=== PATIENT | male | born 1970 | race Caucasian/White ===

== ENCOUNTER 2020-09-11 23:27 | Emergency (ER) | payer MEDICAID, SELFPAY ==
[2020-09-11 23:39] VITALS: BP 132/84; PULSE 87; RESP 18; TEMP 36.7; O2SAT 96; BMI 26.6
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
[2020-09-12] MEDS: HYDROcodone-acetaminophen 5-325 mg Tablet 1 TAB PO (04:38)
[2020-09-12 04:44] VITALS: BP 130/65; PULSE 80; RESP 18; TEMP 36.6; O2SAT 95
== END 2020-09-12 04:45 | disposition home or self-care (01) ==
PROVIDERS: Emergency Provider Emergency Medicine; PCP Internal Medicine
DX: S13.4XXA Sprain of ligaments of cervical spine, initial encounter (principal); I25.10 Atherosclerotic heart disease of native coronary artery without angina pectoris; I25.2 Old myocardial infarction; I50.9 Heart failure, unspecified; J44.9 Chronic obstructive pulmonary disease, unspecified; E78.5 Hyperlipidemia, unspecified; I25.5 Ischemic cardiomyopathy; F17.290 Nicotine dependence, other tobacco product, uncomplicated; Z79.82 Long term (current) use of aspirin; V89.2XXA Person injured in unspecified motor-vehicle accident, traffic, initial encounter; Z95.5 Presence of coronary angioplasty implant and graft; Z95.810 Presence of automatic (implantable) cardiac defibrillator
CPT/HCPCS: 70450; 72125; 99283

== ENCOUNTER → 2021-07-17 08:46 | Outpatient (BNVA) | payer MEDICAID, SELFPAY | PROVIDERS: Visit Provider Internal Medicine | DX: I25.10 Atherosclerotic heart disease of native coronary artery without angina pectoris (principal); I25.2 Old myocardial infarction; E78.5 Hyperlipidemia, unspecified; Z95.810 Presence of automatic (implantable) cardiac defibrillator; I25.5 Ischemic cardiomyopathy; I50.9 Heart failure, unspecified | CPT/HCPCS: 93282; 99213; 99214 ==

== ENCOUNTER → 2022-01-28 12:39 | Outpatient (BNVA) | payer MEDICAID, SELFPAY | PROVIDERS: Visit Provider Internal Medicine | DX: R07.9 Chest pain, unspecified (principal); E78.5 Hyperlipidemia, unspecified; Z95.810 Presence of automatic (implantable) cardiac defibrillator; I25.10 Atherosclerotic heart disease of native coronary artery without angina pectoris; I25.5 Ischemic cardiomyopathy; I50.9 Heart failure, unspecified; F17.290 Nicotine dependence, other tobacco product, uncomplicated; I25.2 Old myocardial infarction | CPT/HCPCS: 93005; 99214 ==

== ENCOUNTER 2022-03-24 07:59 | Outpatient (CLI) | payer MEDICAID, SELFPAY ==
[2022-03-24 08:07] VITALS: BMI 26.6
--- NOTE | 2022-03-24 08:25 | ECG_ITS ---
[facility] Test Date: 2022-03-24 Pat Name: Roshan Arellano Department: Room: Gender: Male Mechanical Facilities Technician: : 1970 Requested By: Pj Hamilton Order Number: [id number] Traci MD: Pj Hamilton M.D. Interpretive Statements NAME OF STUDY: LEXISCAN SESTAMIBI STRESS TEST INDICATION: [Chest Pain, ] Procedure: At the baseline, the blood pressure was 126/82 mmHg with a heart rate of 52 bpm. The electrocardiogram showed sinus bradycardia, left bundle branch block. The Lexiscan was infused over a period of 20 seconds. A total of 0.4 mg of Lexiscan was infused. The stress phase was continued for a total of 5 minutes. Heart rate was at the end of stress phase was 77 bpm and a blood pressure of 126/79 mmHg. The EKG at the peak infusion revealed normal sinus rhythm with no significant ST-T wave changes. Sestamibi was injected 20 seconds after the Lexiscan infusion. Blood pressure at the end of recovery phase was 122/79 mmHg with a heart rate of 75 bpm. Conclusion: 1. Normal EKG response to Lexiscan infusion 2. No Lexiscan induced chest pain or cardiac arrhythmia. 3. Normal blood pressure and heart rate response. 4. Sestamibi/sestamibi perfusion scan pending; see separate report. Electronically Signed On 04-10-2022 23:04:54 WEB PRODUCTION MANAGER by Pj Hamilton M.D. [email or web address]
--- NOTE | 2022-03-24 08:25 | NMCV_ITS ---
NM omayra perf SPECT r/s* [id number] Roshan Arellano Sr Age: 51 Gender: M : 1970 Exam Date: 03/24/2022 09:06 Ordering Phys: Pj Hamilton M.D ([email or web address]) Technologist: SUSI Reagan Exam Location: [facility] [address] Indications: CHEST PAIN STRESS TEST Please [facility] IMAGE PROTOCOL Rest/Stress 1 Lexiscan Day Radiopharmaceutical Dose (mCi) Administration Site Administered by Rest: Tc-99m 10.6 IV SUSI Parnell Sestamibi Stress:Tc-99m 32.6 IV SUSI Parnell Sestamibi Rest: 24-Mar-2022 60 Discovery 630 Stress: 24-Mar-2022 30 Discovery 630 0.4mg Lexiscan. Images obtained in supine and prone position. SPECT RESULTS Technical Quality: Good Raw Data Analysis: Normal Image Corrections: No attenuation or motion correction applied Summed Stress Score: 33 Summed Rest Score: 34 Summed Difference Score: 1 PERFUSION FINDINGS There is a large in size, partially reversible perfusion defect noted in apical, apical anterior, anterior and anterolateral cardoso. This is consistent with large sized prior infarct with significant khushi-infarct ischemia noted in LAD and left circumflex artery territories. FUNCTIONAL RESULTS (calculated via Gated SPECT) Stress Image LV EF (%): 14 Stress EDV (mL):437 TID: 1.22 Stress ESV (mL):378 FUNCTIONAL FINDINGS: LV systolic function is severely reduced. TID ratio of 1.22 is elevated. IMPRESSIONS 1. Abnormal myocardial perfusion imaging with large sized prior infarct noted in the LAD and left circumflex artery territories with significant khushi-infarct ischemia 2. LV systolic function is severely reduced. 3. TID ratio is elevated and may be indicative of multivessel coronary artery disease Pj Hamilton MD (Electronically Signed) Final Date: 30 March 2022 08:19 S
[2022-03-24] MEDS: regadenoson 0.4 Mg/5 ml Syringe IVP (09:38)
[2022-03-24 09:49] VITALS: BP 122/77; PULSE 75
== END 2022-03-24 08:00 | disposition home or self-care (01) ==
LOC: CDL 08:03
PROVIDERS: Visit Provider Internal Medicine
DX: R07.9 Chest pain, unspecified (principal); I25.9 Chronic ischemic heart disease, unspecified
CPT/HCPCS: 36415; 78452; 93017; 96374; A9500; J2785

== ENCOUNTER 2022-04-12 08:30 | Observation (INO) | payer MEDICAID, SELFPAY ==
[2022-04-09 11:49] LABS: Basophils # 0.1 10^3/uL (0.0-0.1); Basophils % 0.7 %; Eosinophils # 0.1 10^3/uL (0.0-0.8); Eosinophils % 1.4 %; Hematocrit 47.6 % (42.0-52.0); Hemoglobin 15.4 g/dL (11.7-16.6); Lymphocytes # 2.9 10^3/uL (0.8-4.8); Mean Corpuscular HGB Conc 32.4 g/dL (30.0-36.0); Mean Corpuscular Hemoglobin 29.6 pg (28.0-34.0); Mean Corpuscular Volume 91.4 fl (80-94); Mean Platelet Volume 9.4 fL (7.4-10.4); Monocytes # 0.6 10^3/uL (0.2-0.9); Monocytes % 5.6 %; Neutrophils # 6.56 10^3/uL (1.8-7.7); Nucleated Red Blood Cells % 0 %; Platelet Count 300 10^3/cmm (130-400); Red Blood Count 5.21 10^6/uL (4.1-5.3); Red Cell Distribution Width 13.5 % (12.1-15.1); White Blood Count 10.2 10^3/uL (4.0-10.0)
[2022-04-09 11:58] LABS: INR 0.93 (0.83-1.21); Prothrombin Time (Patient) 12.7 Seconds (12.0-15.1)
[2022-04-09 12:07] LABS: Anion Gap 14.3 (5-19); Blood Urea Nitrogen 5 mg/dL (6-20); Carbon Dioxide 27 mmol/L (22-29); Chloride 102 mmol/L (98-107); Glomerular Filtration Rate 118.9 mL/min (90-130); Glucose 107 mg/dL (65-115); Osmolality Calculated 286 mOsm/kg (285-295); Potassium 4.3 mmol/L (3.5-5.1); Sodium 139 mmol/L (136-145)
[2022-04-12] VITALS (8 sets, daily range): BP systolic 86–123; BP diastolic 59–74; PULSE 44–55; RESP 15–20; TEMP 36.8; O2SAT 93–95; BMI 26.6; BMI 26.7
[2022-04-12] MEDS: aspirin 325 mg Tablet PO (06:00)
[2022-04-12] MEDS: diphenhydrAMINE 50 mg Capsule PO (06:00)
--- NOTE | 2022-04-12 06:00 | XACV_ITS ---
Exam Room: 2 Ht: 175 cm Wt: 82 kg BSA: 2.01 m2 Gender: Male : 1970 Any Known Allergies: Other Exam Priority: Routine Procedure(s): Procedure Description: Diagnostic procedure Procedure Description: PCI procedure Procedure Description: Drug Eluting Coronary Stent Procedure Description: PTCA Procedure Description: Miscellaneous Procedure Description: ACT Procedure Description: Coronary Angiography Diagnostic Cath Status: Elective Diagnostic Findings * INDICATION:51-year-old man with past medical history of CAD with PCI of LAD, defibrillator in place who is planned to undergo left heart cath with possible percutaneous coronary intervention at this he has been having chest pain and chest pressure symptoms over the last few months. These symptoms are new for him. He underwent stress test that is showing significant khushi-infarct ischemia in LAD and LCx territories. * Left Main has no significant disease. * Circumflex has no significant disease. Medium sized OM1 has severe 90% proximal stenosis.. * Mid Left Anterior Descending: mild 40% stenosis, KELI: 3 flow. * Mid Right Coronary Artery: total occlusion, KELI: 0 flow. * First Obtuse Marginal Branch Segment: severe 90% stenosis, KELI: 3 flow. * Coronary angiography shows co-dominance. PCI Status: Elective PCI Indication: Other Interventional Findings * Procedure detail: We engaged left main artery with XB 3.0 guide catheter. IV heparin was administered to maintain ACT more than 250 S. 0.014 run-through guidewire was put on OM1. We predilated it with 2.25 x 12 mm semicompliant balloon. This was followed by placement of 2.25 x 15 mm resolute Golva drug-eluting stent. At this time final angiogram was performed that showed excellent stent expansion, no residual stenosis and KELI-3 flow. Guidewire and guide catheter were removed. Patient left the Alignment Specialist in a stable condition.. * First Obtuse Marginal Branch Segment: 90% stenosis treated with a AB TREK 2.25X12 RX BALLOON, and MDT R MARINO 2.25X15 SHA. 0% residual stenosis, KELI: 3 flow. Conclusions 1. Severe OM1 stenosis s/p successful revascularization with SHA x1.. 2. First Obtuse Marginal Branch Segment was treated with a Balloon, and Drug Eluting Stent. Recommendations * Dual antiplatelet therapy with aspirin and Plavix for at least 1 year. * High intensity statin therapy. * Outpatient cardiology follow-up in 4 weeks. Interventional RX Recommendation: PCI w/o planned CABG Diagnostic RX Recommendation: PCI w/o planned CABG Anticoagulation: Heparin Pressures Phase:Rest AO : / ( 6 ) @ 7:06:00 AM 89 / 60 ( 75 ) @ 7:12:00 AM 88 / 62 ( 75 ) @ 7:16:00 AM 99 / 48 ( 64 ) @ 7:21:00 AM Clinical Evaluation EBL: 5mL-10mL Procedural Details Procedure Consent Obtained. Pre-Procedure Time Out. Identified patient by full name and date of as verbalized by the patient/guarantor. Does the consent match the physician's order: Yes. Accurate & Complete Informed Consent: Yes. Inpatient/Outpatient History & Physical on Chart: Yes. If H&P is completed, is and addenduem needed: No. Visualize and Verify Site with Patient/Guarantor: N/A. Relevant Radiology Images available: Yes. The risks, benefits, and alternatives of sedation and/or procedure were discussed by physician. The patient agrees to continue. Procedure started. [facility] Clinical Fraility Score: 3: Managing Well. Alignment Specialist Indications: Other Chest Pain and Abnormal Stress Test. Chest Pain Symptom Assessment: Typical Angina Symptoms. Correct patient, site and procedure confirmed by cath team. Current diagnosis: Chest Pain. PERRLA. Strong, equal hand slug press operator bilaterally. Lungs clear x 5 lobes. IV Site on Arrival: 18 gauge in the right anticubital. IV Fluids: 0.9% NaCl at KVO. 0 mL infused prior to farm labor contractor. Pre Procedural Pulses: bilateral dorsalis pedis was 1+. Pre Procedural Pulses: bilateral posterior tibial was 1+. Pre Procedural Pulses: bilateral radial was 3+. Oxygen started at 2liters/min via nasal canula. right groin was prepped with chloroprep then draped in the usual sterile fashion. bilateral groins was prepped with chloroprep then draped in the usual sterile fashion. Baseline sample Acquired. HR: 67 BPM. Physician arrived. Rick Mills RN, circulating with Cristi Jeffrey RN. Patient's family unavailable. Equipment: 6F - Radial. Cardiac Cath Pack. ACIST Manifold Kit Model BT 2000. Heparinized Saline (2 units/mL), 1000 mL bag. Physician scrubbed in. Immediate Pre-Procedure Time Out. Correct Patient: Yes; Correct Procedure: Yes; Correct Site: Yes; Correct Patient Position: Yes; Correct Supplies: Yes; Dried Flammable Prep: Yes; Blood Products Available: N/A;. Lidocaine 1% infiltrated to the right radial. Arterial access obtained. A 5 andorran TIG catheter in over the exchange J wire. Multiple views taken of left coronary artery. Catheter redirected to the RCA, and unable to cannulate. Catheter removed over the exchange J wire. A 5 andorran JR4 catheter in over the exchange J wire. Cine of the RCA performed. Catheter removed over the exchange J wire. 6 andorran XB 3 guide catheter was inserted over the exchange J wire. Runthrough guidewire was advanced through the guide catheter to lesion in the OM-1. Add inventory: Co-remotely piloted vehicle controller, Endoflator. Inflation number : 1 A AB TREK 2.25X12 RX BALLOON was prepped and advanced across the 1st Ob Michelle , then inflated to 8 NINA for 0:12 seconds. Inflation number: 2 The AB TREK 2.25X12 RX BALLOON was reinflated across the 1st Ob Michelle, to 8 NINA for 0:23 seconds. Inflation number: 3 The AB TREK 2.25X12 RX BALLOON was reinflated across the 1st Ob Michelle, to 8 NINA for 0:21 seconds. Balloon out. Results checked. Inflation Number : 4 Zabrina Webster MARINO 2.25X15 SHA -Lot Number# [id number] was prepped and advanced across the 1st Ob Michelle. The stent was deployed at 12 NINA for 0:34 seconds. Exp. 2024-02-18. Stent balloon out over wire. Results checked. Wire out. ACT drawn. Results 360 seconds. Therapeutic limits - pre-heparin administration 90-150 seconds and monitoring heparin during a vascular procedure >250 seconds. Guide catheter out over the exchange J wire. Dr. Hamilton scrubbed out. A TR Band was successful obtaining hemostatsis at the Right Radial artery insertion site. TR band placed. Hemostasis obtained. Post Procedure: Pulses reassessed and unchanged. PERRLA. Strong, equal hand slug press operator bilaterally. No VTE prophylaxis required. Medication's Wasted: Lidocaine 1% = 2 mL. Medication's Wasted: Verapamil = 2.5 mg. Medication's Wasted: Nitro = 49.6 mg. Medication's Wasted: Heparin = 2000 units. Total IV fluids: 302 mL. Medication's Wasted: Other = Versed 1 mg. Medication's Wasted: Other = Fentanyl 50 mcg. PCI Indication: CAD (without ischemic symptoms). Post-op diagnosis: PCI of the OM-1. Complications: none. Estimated blood loss: 5mL-10mL. Responsiveness - Normal response to verbal stimuli; alert and oriented, PERRLA. Airway - Unaffected, no intervention required; spontaneous ventilation. Circulation: W/N/L, pulses unchanged. Nausea/Vomiting: No. Procedure completed. Patient transferred by wheelchair to CPRU. Vital chart was stopped. Access Site Site: Right Radial artery Sheath Size: 6 Fr Hemostasis Method: TR Band Hemostasis Success: Successful Procedure Medications Start: 7:02 AM Stop: 7:02 AM Medication: Versed Amount: 1 mg Route: I.V. Start: 7:02 AM Stop: 7:02 AM Medication: Fentanyl Amount: 50 mcg Route: I.V. Start: 7:11 AM Stop: 7:11 AM Medication: Heparin Amount: 5000 units Route: I.V. Start: 7:14 AM Stop: 7:14 AM Medication: Versed Amount: 1 mg Route: I.V. Start: 7:18 AM Stop: 7:18 AM Medication: Heparin Amount: 3000 units Route: I.V. Start: 7:19 AM Stop: 7:19 AM Medication: Nitrogylcerin Amount: 200 mcg Route: I.A. Start: 7:08 AM Stop: 7:08 AM Medication: Nitrogylcerin Amount: 200 mcg Route: I.A. Start: 7:20 AM Stop: 7:20 AM Medication: Versed Amount: 1 mg Route: I.V. Start: 7:21 AM Stop: 7:21 AM Medication: 0.9% Saline Amount: 250 ml Route: I.V. bolus Start: 7:22 AM Stop: 7:22 AM Medication: Verapamil Amount: 2.5 mg Route: I.A. Start: 7:44 AM Stop: 7:44 AM Medication: Plavix Amount: 300 mg Route: P.O. I, the attending physician, have reviewed and verified all procedure medications. Yes, all medications given per verbal order History/Risk Factors Hypertension: No Dyslipidemia: Yes Peripheral Arterial Disease (PAD): No Myocardial Infarction (CA): Yes Obesity: No Renal Disease: No Tobacco Use: Current/Recent(w/in 1 year) Prior Interventions PCI: Yes CABG: No Valve Surgery: No Date of PCI: 01/03/2019 Report Signatures Finalized by Pj Hamilton MD on 04/12/2022 12:41 PM
[2022-04-12 06:20] LABS: Basophils # 0.1 10^3/uL (0.0-0.1); Basophils % 0.8 %; Eosinophils # 0.2 10^3/uL (0.0-0.8); Eosinophils % 2.6 %; Hematocrit 48.8 % (42.0-52.0); Lymphocytes # 4.4 10^3/uL (0.8-4.8); Lymphocytes % 52.2 %; Mean Corpuscular HGB Conc 32.8 g/dL (30.0-36.0); Mean Corpuscular Hemoglobin 29.3 pg (28.0-34.0); Mean Corpuscular Volume 89.2 fl (80-94); Mean Platelet Volume 9.2 fL (7.4-10.4); Monocytes # 0.6 10^3/uL (0.2-0.9); Monocytes % 6.6 %; Neutrophils # 3.17 10^3/uL (1.8-7.7); Neutrophils % 37.6 %; Nucleated Red Blood Cells % 0 %; Platelet Count 304 10^3/cmm (130-400); Red Blood Count 5.47 10^6/uL (4.1-5.3); Red Cell Distribution Width 13.5 % (12.1-15.1); White Blood Count 8.5 10^3/uL (4.0-10.0)
[2022-04-12 06:37] LABS: Anion Gap 13.5 (5-19); Blood Urea Nitrogen 4 mg/dL (6-20); Calcium 8.9 mg/dL (8.5-10.5); Carbon Dioxide 26 mmol/L (22-29); Chloride 101 mmol/L (98-107); Glomerular Filtration Rate 118.9 mL/min (90-130); Glucose 83 mg/dL (65-115); Osmolality Calculated 280 mOsm/kg (285-295); Potassium 3.5 mmol/L (3.5-5.1); Sodium 137 mmol/L (136-145)
--- NOTE | 2022-04-12 06:59 | W.PM.OPSFHP ---
Same Day Surgery H&P Indication for Procedure/HPI DATE OF PROCEDURE: April 12, 2022 CHIEF COMPLAINT/INDICATIONFOR SURGICAL PROCEDURE: Chest pain/abnormal stress test PREOP DIAGNOSIS: Chest pain/abnormal stress test PLANNED PROCEDURE: Operation Date: 04/12/22 07:00 Proposed Procedures p [facility] 24993,I25.5,R94.39(Left) - Pj Hamilton M.D Possible percutaneous coronary intervention 51-year-old man with past medical history of CAD with PCI of LAD, defibrillator in place who is planned to undergo left heart cath with possible percutaneous coronary intervention at this he has been having chest pain and chest pressure symptoms over the last few months. These symptoms are new for him. He underwent stress test that is showing significant khushi-infarct ischemia in LAD and LCx territories. Medications/Allergies* Home Medications Medication Instructions Recorded Confirmed Type aspirin 81 mg tablet,delayed 81 mg PO DAILY 02/16/19 04/12/22 History release (Adult Low Dose Aspirin) bupropion HCl 150 mg tablet,12 hr 150 mg PO QAM 02/16/19 04/12/22 History sustained-release (Wellbutrin SR) albuterol sulfate 90 mcg/actuation 2 puff inhalation Q6H PRN 03/03/20 04/09/22 History aerosol inhaler Respiratory Distress Allergies/Adverse Reactions Allergy/AdvReac Type Severity Reaction Status Date / Time simvastatin AdvReac ADR-Cramping Verified 01/28/22 12:58 of the Muscles Current Medications: Generic Name Dose Route Start Last Admin Trade Name Freq PRN Reason Stop Dose Admin Sodium Chloride 1,000 mls @ 50 mls/hr 04/12/22 06:00 04/12/22 06:32 Sodium Chloride 0.9% IV 04/13/22 01:59 Not Given .Q20H ONE Pertinent History/Comorbid Conditions* Medical History Anterior wall myocardial infarction CAD (coronary atherosclerotic disease) CHF (congestive heart failure) COPD (chronic obstructive pulmonary disease) Depression Dyslipidemia 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 male GERD (gastroesophageal reflux disease) Hypoxemia ICD (implantable cardioverter-defibrillator) in place Ischemic cardiomyopathy KEENA on CPAP Tobacco use Surgical History (Updated 02/20/19 @ 11:40 by Slim Horton MD) S/P angioplasty with stent Family History (Updated 02/16/19 @ 12:46 by Shelly Brick, RN) CAD (coronary artery disease) Father Cancer Mother Social History Smoking and tobacco status: current every day smoker cigars Alcohol intake: never Household members: spouse Marital status: service: No Current gender identity: Male Pertinent Exam Findings alert, oriented x 3, clear to auscultation bilaterally and regular rate & rhythm Conscious Sedation Assessment PATIENT ASSESSED PRIOR TO SEDATION, WITH NO CHANGE NOTED: Yes AIRWAY EVAL/ANESTHESIA PLAN: normal airway, ASA III, Local Anesthesia, Risks, benefits & alternatives of sedation and/or procedure discussed and Patient agrees to continue as planned ADDITIONAL INFORMATION: Possible percutaneous coronary intervention Recommendations Surgery/Procedure today (Left heart cath with possible percutaneous coronary intervention) Coding Level of Care Code Acute Code for Tim Rogers
--- NOTE | 2022-04-12 09:01 | PC.NURSE ---
Around 0815: Transfer orders received. TR band to patients right wrist clean, dry, et intact. No Drainage or hematoma noted. Vitals stable. No c/o pain or discomfort. Report given to PAWAN Kruse. Patient transferred from CPRU to ICU via wheel chair. All belonging sent with patient.
--- NOTE | 2022-04-12 12:07 | PC.CHAP ---
Pastoral Care Encounter/Spiritual Assessment Type of Contact [] Declined curing oven attendant visit [] Patient/Family/Request visit [] Outpatient visit [] Follow-up visit [] Physician referral [] Code/Alert [x] Routine visit [] Staff referral [] Actively dying [] Patient sleeping [] Family support [] [] Out of room [] Palliative care [] [] Receiving care in room [] Pre-surgical visit [] Trauma [] Long length of stay [x] ICU visit [x] Other: breakfast... feeling stronger than when we arrived Relational/Emotional Strength [] Patient feels connected with others/family/visitors/staff [] Distress [] Loneliness/isolation [] Abandonment Spirituality of Patient [] Person of Coco [] Attends Rastafarian of their Coco [] Believes in Prayer [] Reads Bible or Voodoo materials [] There are Spiritual issues to be addressed Odd Job Laborer Interventions [x] Prayer [] Active listening [] Non-anxious presence [] Spiritual/emotional support [] Crisis/trauma care [] Spiritual counseling [] Bereavement support [] Provided bereavement packet [] Provided Bible/devotional materials [] Provided toy/stuffed animal, coloring book to patient or family member [] Provided Communion [] Anointing/Loman [] Salvation [x] Completed spiritual assessment [] Other: Impact on Illness or Injury [] Angry [] Fearful [] Anxious [] Often cries [] Exhaustion [] Unable to work [] Unable to attend episcopalian [] Unable to walk/stand [] Unable to read [] Unable to drive [] Unable to eat/drink [] Unable to sleep [] Unable to be with family [] Patient intubated [] Other: Summary Time spent with patient
--- NOTE | 2022-04-12 16:31 | P.SS_ITS ---
Short Stay Summary Providers Date of Admit/Discharge: 04/19/22 Attending Provider: Pj Hamilton M.D Primary Care Provider: Pj Hamilton M.D Chief Complaint: I25.5 HPI History of Present Illness 51-year-old man with past medical history of CAD with PCI of LAD, defibrillator in place who is planned to undergo left heart cath with possible percutaneous coronary intervention at this he has been having chest pain and chest pressure symptoms over the last few months.? These symptoms are new for him. He underwent stress test that is showing significant khushi-infarct ischemia in LAD and LCx territories. Review of Systems Const: Reports: fatigue Card: Reports: chest pain (pressure/discomfort), dyspnea on exertion and orthopnea; Denies: palpitations, irregular heart rhythm, swelling of feet/ankles, lightheadedness, pre-syncope or leg pain with exertion Resp: Reports: dyspnea Musc: Reports: neck pain; Denies: back pain Neuro: Reports: headache(s) Psych: Denies: anxiety, depression, suicidal ideation or homicidal ideation Corona/Lymph: Reports: easy bruising and easy bleeding Home Meds/Allergies Home Medications and Allergies Home Medications Medication Instructions Recorded Confirmed Type aspirin 81 mg tablet,delayed 81 mg PO DAILY 02/16/19 04/13/22 History release (Adult Low Dose Aspirin) bupropion HCl 150 mg tablet,12 hr 150 mg PO QAM 02/16/19 04/13/22 History sustained-release (Wellbutrin SR) albuterol sulfate 90 mcg/actuation 2 puff inhalation Q6H PRN 03/03/20 04/13/22 History aerosol inhaler Respiratory Distress Allergies Allergy/AdvReac Type Severity Reaction Status Date / Time simvastatin AdvReac ADR-Cramping Verified 01/28/22 12:58 of the Muscles PFSH Acute PFSH: Medical History Anterior wall myocardial infarction CAD (coronary atherosclerotic disease) CHF (congestive heart failure) COPD (chronic obstructive pulmonary disease) Depression Dyslipidemia 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 male GERD (gastroesophageal reflux disease) Hypoxemia ICD (implantable cardioverter-defibrillator) in place Ischemic cardiomyopathy KEENA on CPAP Tobacco use Surgical History S/P angioplasty with stent Family History Mother Cancer Father CAD (coronary artery disease) Social History Smoking and tobacco status: current every day smoker cigars Alcohol intake: never Household members: spouse Marital status: service: No Current gender identity: Male Vitals/I&O/Wt Last Vital Signs Temp 98.3 F 04/12/22 06:00 Pulse 44 L 04/12/22 08:30 Resp 15 04/12/22 08:30 BP 109/69 04/12/22 09:00 Pulse Ox 93 04/12/22 08:30 O2 Del Method 04/12/22 09:03 04/12/22 04/12/22 04/12/22 06:59 14:59 22:59 Intake Total 240 / 240 Balance 240 / 240 Weight last 48 hrs Weight 181 lb 5 oz Weight 180 lb Physical Exam Narrative: GENERAL: Patient is alert, awake and oriented x3. [] NECK: No jugular vein distension. [] HEENT: No cyanosis. No icterus. No pallor. [] HEART: Regular S1 and S2. No murmur, rub or gallop. [] LUNGS: Clear to auscultate bilaterally. [] CENTRAL NERVOUS SYSTEM: Grossly nonfocal. [] EXTREMITIES: Lower extremities with 1+ edema bilaterally. Pulses palpable in the lower extremities, both dorsalis pedis and posterior tibial. [] Hospital Course Hospital Course Patient underwent coronary angiogram that showed severe OM1 stenosis. He underwent successful revascularization with SHA x1. He was observed for 8 hours and was discharged home in a stable condition. Continue aspirin and Plavix. SSS Data Data Completed and Pending: Completed Studies During Hospitalization Category Date Time Status RADIOLOGIST DIAGNOSTIC request for service Routin e Exams 04/12/22 06:00 Completed Discharge Plan Discharge Patient Disposition: Home Condition: Stable Prescriptions: Continued albuterol sulfate 90 mcg/actuation HFA aerosol inhaler 2 puff inhalation Q6H PRN (Reason: Respiratory Distress) aspirin [Adult Low Dose Aspirin] 81 mg tablet,delayed release (DR/EC) 81 mg PO DAILY bupropion HCl [Wellbutrin SR] 150 mg tablet sustained-release 12 hr 150 mg PO QAM losartan 25 mg tablet 12.5 mg PO DAILY Qty: 45 3RF nitroglycerin [Nitrostat] 0.4 mg tablet, sublingual 0.4 mg SUBLINGUAL Q5M PRN (Reason: chest pain) Qty: 25 3RF amiodarone 200 mg tablet 200 mg PO DAILY Qty: 90 3RF metoprolol succinate 50 mg tablet extended release 24 hr 50 mg PO DAILY Qty: 90 3RF clopidogrel 75 mg tablet 75 mg PO DAILY Qty: 90 3RF sildenafil (pulm.hypertension) 20 mg tablet 40 mg PO DAILY PRN (Reason: sexual activity) Qty: 20 1RF Discharge Orders: Discharge Order (Routine); Ordered 04/12/22 Ordered By: Pj Hamilton Referrals: Pj Hamilton M.D [Primary Care Provider] - 2 months Montserrat Albrecht FNP [Nurse Practitioner] - 04/21/22 9:15 am Discharge Diet: Regular Discharge Activity: Increase activity as tolerated Patient Instructions: Coronary Angioplasty (DC), Opioid Safety, Post Angiogram Home Care Instructions Attestations Medical Necessity Statement*: Care not expected to cross 2 midnights. Time Spent in Patient Care*: less than 30 min Quality Metrics Clinical Quality Measures: [ No reported AMI, CVA or VTE this stay ] Coding Level of Care Code Acute Code for g Ken
--- NOTE | 2022-04-12 16:49 | PC.NURSE ---
Patient received discharge orders. Patient give all of discharge instructions and activity restrictions. Patient verbalized understanding. All IV's removed. Patient will be taken to exit via wheelchair.
--- NOTE | 2022-04-12 17:17 | PC.NURSE ---
Patient left facility at 1718.
== END 2022-04-12 17:19 | disposition home or self-care (01) ==
LOC: ICU 08:51
PROVIDERS: Admitting Provider Internal Medicine; PCP Internal Medicine; Visit Provider Internal Medicine
DX: I25.5 Ischemic cardiomyopathy (principal); I50.9 Heart failure, unspecified; R58 Hemorrhage, not elsewhere classified; E78.5 Hyperlipidemia, unspecified; I25.2 Old myocardial infarction; I25.10 Atherosclerotic heart disease of native coronary artery without angina pectoris; Z79.82 Long term (current) use of aspirin; G47.33 Obstructive sleep apnea (adult) (pediatric); K21.9 Gastro-esophageal reflux disease without esophagitis; J44.9 Chronic obstructive pulmonary disease, unspecified; F32.A Depression, unspecified; F17.290 Nicotine dependence, other tobacco product, uncomplicated
CPT/HCPCS: 80048; 85025; 85347; 85610; 93454; 96361; 96365; 99152; 99153; C1725; C1769; C1874; C1887; C1894; C9600; G0378; J1644; J2250; J3010; J3490; J7030; Q0163; Q9967

== ENCOUNTER → 2022-04-21 09:18 | Outpatient (BNVA) | payer MEDICAID, SELFPAY | PROVIDERS: PCP Internal Medicine; Visit Provider Nurse Practitioner Family | DX: I25.10 Atherosclerotic heart disease of native coronary artery without angina pectoris (principal); Z95.810 Presence of automatic (implantable) cardiac defibrillator; I50.9 Heart failure, unspecified; F17.290 Nicotine dependence, other tobacco product, uncomplicated; I25.2 Old myocardial infarction; Z79.82 Long term (current) use of aspirin | CPT/HCPCS: 36415; 80048; 99214 ==

== ENCOUNTER → 2022-07-30 10:41 | Outpatient (BNVA) | payer MEDICAID, SELFPAY | PROVIDERS: Visit Provider Internal Medicine | DX: R07.9 Chest pain, unspecified (principal); E78.5 Hyperlipidemia, unspecified; Z95.810 Presence of automatic (implantable) cardiac defibrillator; I25.10 Atherosclerotic heart disease of native coronary artery without angina pectoris; I25.5 Ischemic cardiomyopathy; Z72.0 Tobacco use; I50.9 Heart failure, unspecified; I25.2 Old myocardial infarction | CPT/HCPCS: 99214 ==

== ENCOUNTER 2022-08-30 19:48 | Emergency (ER) | payer MEDICAID, SELFPAY ==
[2022-08-30 19:55] VITALS: BP 126/77; PULSE 78; RESP 16; TEMP 36.6; O2SAT 96; BMI 27.3
--- NOTE | 2022-08-30 20:13 | W.ED.WOUNDLC ---
HPI - Wound/Laceration General: Chief Complaint: Wound/Laceration Stated Complaint: right wrist lack Time Seen by Provider: 08/30/22 20:00 Source: patient Mode of arrival: ambulatory Limitations: no limitations History of Present Illness: 51-year-old male states that a nail and lacerated his right forearm he does have a 3 cm laceration to his right forearm superficial nature he states it was bleeding as he is on Plavix he is up-to-date on his tetanus. He denies any pain he states this happened just prior to arrival denies any other injuries. 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 male GERD (gastroesophageal reflux disease) Hypoxemia ICD (implantable cardioverter-defibrillator) in place Ischemic cardiomyopathy KEENA on CPAP Tobacco use Surgical History S/P angioplasty with stent Family History Mother Cancer Father CAD (coronary artery disease) Social History Smoking and tobacco status: current every day smoker cigars Alcohol intake: never Substance/Drug Use: never Household members: spouse Marital status: service: No Current gender identity: Male Physical Exam Const: COMMON NORMALS: no acute distress and patient oriented x3 HENMT: COMMON NORMALS: normocephalic and atraumatic HEAD & SCALP: normocephalic and atraumatic Eye: COMMON NORMALS: conjunctivae normal CONJUNCTIVA: Yes conjunctivae normal Neck/C-Spine: COMMON NORMALS: supple Chest: COMMONS NORMALS: normal inspection of the chest Resp: COMMON NORMALS: normal respiratory effort Extremity: OTHER: 3 cm laceration to right forearm superficial nature bleeding controlled Neuro: COMMON NORMALS: patient oriented x3 Psych: COMMON NORMALS: mental status grossly normal Skin: COMMON NORMALS: no rashes or lesions noted GENERAL SKIN EXAM: no rashes or lesions noted Procedures Laceration Laceration 1: Site: upper extremity Side (If applicable): right Size (cm): 3 Description: linear Depth: simple, single layer Pre-repair: wound explored and irrigated extensively Skin layer closed with: other (dermabond) Course Vital Signs: Vital signs: Vital Signs Temperature 97.9 F 08/30/22 19:55 Pulse Rate 78 08/30/22 19:55 Respiratory Rate 16 08/30/22 19:55 Blood Pressure 126/77 08/30/22 19:55 Pulse Oximetry 96 08/30/22 19:55 Oxygen Delivery Me thod Room Air 08/30/22 19:55 MDM - Wound/Laceration Medical Decision Making Patient presents here with a laceration to his left forearm superficial nature was able to closed with tissue adhesive he did wash it thoroughly here he is up-to-date on his tetanus. Medical Records I reviewed the patient's medical records. Lab Data I reviewed the patient's lab results. Discharge Plan Discharge Patient Disposition: Home Clinical Impression: Laceration Condition: Stable Prescriptions: No Action albuterol sulfate 90 mcg/actuation HFA aerosol inhaler 2 puff inhalation Q6H PRN (Reason: Respiratory Distress) aspirin [Adult Low Dose Aspirin] 81 mg tablet,delayed release (DR/EC) 81 mg PO DAILY bupropion HCl [Wellbutrin SR] 150 mg tablet sustained-release 12 hr 150 mg PO QAM amiodarone 200 mg tablet 200 mg PO DAILY Qty: 90 3RF metoprolol succinate 50 mg tablet extended release 24 hr 50 mg PO DAILY Qty: 90 3RF clopidogrel 75 mg tablet 75 mg PO DAILY Qty: 90 3RF nitroglycerin [Nitrostat] 0.4 mg tablet, sublingual 0.4 mg SUBLINGUAL Q5M PRN (Reason: chest pain) Qty: 25 3RF sildenafil (pulm.hypertension) 20 mg tablet 40 mg PO DAILY PRN (Reason: sexual activity) Qty: 20 1RF losartan 25 mg tablet 12.5 mg PO DAILY Qty: 45 3RF Discharge Orders: Discharge ED (Routine); Ordered 08/30/22 Ordered By: Tennille Giraldo Discharge Diet: Advance as tolerated Discharge Activity: Resume usual activity Patient Instructions: Laceration (ED) Coding Level of Care Code ED [employer] Laboratory Director for Tim Rogers
[2022-08-30 20:39] VITALS: BP 120/75; PULSE 69; RESP 18; O2SAT 94
--- NOTE | 2022-09-08 13:54 | DCPLANNER ---
Addendum entered by Nichol Morton 09/17/22 10:46: Patient had a follow up appointment scheduled with Dr. Anderson at [facility] - patient did attend appointment. Original Note: human resources talent manager called patient due to no primary care physician - patient stated that he would like help in getting established with a primary care physician. human resources talent manager called [facility] - a follow up appointment was scheduled for Saturday, September 10, 2022 at 9:[address] Anderson. human resources talent manager gave patient the appointment information.
== END 2022-08-30 20:42 | disposition home or self-care (01) ==
PROVIDERS: Emergency Provider Emergency Medicine
DX: S51.821A Laceration with foreign body of right forearm, initial encounter (principal); Z79.82 Long term (current) use of aspirin; Z79.02 Long term (current) use of antithrombotics/antiplatelets; F17.210 Nicotine dependence, cigarettes, uncomplicated; I25.10 Atherosclerotic heart disease of native coronary artery without angina pectoris; I11.0 Hypertensive heart disease with heart failure; I50.9 Heart failure, unspecified; J44.9 Chronic obstructive pulmonary disease, unspecified; E78.5 Hyperlipidemia, unspecified; Z95.810 Presence of automatic (implantable) cardiac defibrillator; W45.0XXA Nail entering through skin, initial encounter
CPT/HCPCS: 12002; 99282

== ENCOUNTER → 2022-11-25 16:08 | Outpatient (BNVA) | payer MEDICAID, SELFPAY | PROVIDERS: PCP Family Medicine Adult Medicine; Visit Provider Internal Medicine | DX: Z45.02 Encounter for adjustment and management of automatic implantable cardiac defibrillator (principal) | CPT/HCPCS: 93296 ==

== ENCOUNTER → 2023-01-28 09:50 | Outpatient (BNVA) | payer MEDICAID, SELFPAY | PROVIDERS: PCP Family Medicine Adult Medicine; Referring Provider Family Medicine Adult Medicine; Visit Provider Internal Medicine Cardiovascular Disease | DX: I50.9 Heart failure, unspecified (principal); Z72.0 Tobacco use; I25.5 Ischemic cardiomyopathy; I25.10 Atherosclerotic heart disease of native coronary artery without angina pectoris; Z95.810 Presence of automatic (implantable) cardiac defibrillator; E78.5 Hyperlipidemia, unspecified; I25.2 Old myocardial infarction | CPT/HCPCS: 99213 ==

== ENCOUNTER → 2023-03-02 11:27 | Outpatient (BNVA) | payer MEDICAID, SELFPAY | PROVIDERS: PCP Family Medicine Adult Medicine; Visit Provider Internal Medicine | DX: Z45.02 Encounter for adjustment and management of automatic implantable cardiac defibrillator (principal) | CPT/HCPCS: 93296 ==

== ENCOUNTER → 2023-08-02 13:31 | Outpatient (BNVA) | payer MEDICAID, SELFPAY | PROVIDERS: PCP Family Medicine Adult Medicine; Visit Provider Internal Medicine Cardiovascular Disease | DX: I25.10 Atherosclerotic heart disease of native coronary artery without angina pectoris (principal); I25.83 Coronary atherosclerosis due to lipid rich plaque; I11.0 Hypertensive heart disease with heart failure; I50.22 Chronic systolic (congestive) heart failure; Z95.810 Presence of automatic (implantable) cardiac defibrillator; E78.5 Hyperlipidemia, unspecified; Z72.0 Tobacco use | CPT/HCPCS: 99213 ==

== ENCOUNTER → 2024-02-06 15:05 | Outpatient (BNVA) | payer MEDICAID, SELFPAY | PROVIDERS: PCP Family Medicine Adult Medicine; Visit Provider Internal Medicine | DX: I11.0 Hypertensive heart disease with heart failure (principal); I50.22 Chronic systolic (congestive) heart failure; E78.5 Hyperlipidemia, unspecified; Z95.810 Presence of automatic (implantable) cardiac defibrillator; I25.10 Atherosclerotic heart disease of native coronary artery without angina pectoris; I25.83 Coronary atherosclerosis due to lipid rich plaque; I25.5 Ischemic cardiomyopathy; Z72.0 Tobacco use; I25.2 Old myocardial infarction | CPT/HCPCS: 99214 ==

== ENCOUNTER → 2024-03-07 09:12 | Outpatient (BNVA) | payer MEDICAID, SELFPAY | PROVIDERS: PCP Family Medicine Adult Medicine; Visit Provider Internal Medicine Cardiovascular Disease | DX: Z45.02 Encounter for adjustment and management of automatic implantable cardiac defibrillator (principal) | CPT/HCPCS: 93296 ==

== ENCOUNTER → 2024-03-21 15:14 | Outpatient (BNVA) | payer MEDICAID, SELFPAY | DX: E78.5 Hyperlipidemia, unspecified (principal); I15.0 Renovascular hypertension | CPT/HCPCS: 80053; 80061; 85025 ==

== ENCOUNTER → 2024-04-04 14:12 | Outpatient (BNVA) | payer MEDICAID, SELFPAY | DX: E87.5 Hyperkalemia (principal) | CPT/HCPCS: 84132 ==

== ENCOUNTER → 2024-06-20 10:47 | Outpatient (BNVA) | payer MEDICAID, SELFPAY | PROVIDERS: Visit Provider Internal Medicine | DX: Z45.02 Encounter for adjustment and management of automatic implantable cardiac defibrillator (principal) | CPT/HCPCS: 93296 ==

== ENCOUNTER → 2024-07-04 15:22 | Outpatient (BNVA) | payer MEDICAID, SELFPAY | DX: E78.5 Hyperlipidemia, unspecified (principal) | CPT/HCPCS: 80053; 80061 ==

== ENCOUNTER → 2024-07-18 14:39 | Outpatient (BNVA) | payer MEDICAID, SELFPAY | PROVIDERS: Visit Provider Nurse Practitioner Family | DX: I25.119 Atherosclerotic heart disease of native coronary artery with unspecified angina pectoris (principal); I15.0 Renovascular hypertension; I50.22 Chronic systolic (congestive) heart failure; I95.9 Hypotension, unspecified; R00.1 Bradycardia, unspecified; Z79.02 Long term (current) use of antithrombotics/antiplatelets; Z79.82 Long term (current) use of aspirin; Z95.5 Presence of coronary angioplasty implant and graft; Z95.810 Presence of automatic (implantable) cardiac defibrillator; F17.290 Nicotine dependence, other tobacco product, uncomplicated; I25.83 Coronary atherosclerosis due to lipid rich plaque | CPT/HCPCS: 93005; 99214 ==

== ENCOUNTER 2024-07-18 17:20 | Inpatient (IN) | payer MEDICAID, SELFPAY ==
[2024-07-18] VITALS (9 sets, daily range): BP systolic 109–129; BP diastolic 62–76; PULSE 57–91; RESP 13–18; TEMP 36.3–36.4; O2SAT 94–97; BMI 25.5
--- NOTE | 2024-07-18 17:26 | XRR_ITS ---
PROCEDURE INFORMATION: Exam: XR Chest Exam date and time: 07/18/2024 5:47 PM Age: 53 years old Clinical indication: Pain; Chest pressure; Additional info: Cpj TECHNIQUE: Imaging protocol: Radiologic exam of the chest. Views: 1 view. COMPARISON: CR XR chest 1V [id number] 01/02/2019 12:05 PM FINDINGS: Lungs: Unremarkable. No consolidation. Pleural spaces: Unremarkable. No pleural effusion. No pneumothorax. Heart/Mediastinum: Unremarkable. No cardiomegaly. Bones/joints: Unremarkable. XR/XR chest 1V portable [id number] IMPRESSION: No acute findings.
--- NOTE | 2024-07-18 17:26 | ECG_ITS ---
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1970 Requested By: Tennille Giraldo Order Number: [id number] Reading MD: RAMONA STEINER Measurements Intervals [place] Rate: 92 P: 53 [place]: 157 QRS: 73 QRSD: 114 T: 246 QT: 336 QTc: 416 Interpretive Statements SINUS RHYTHM WITH FREQUENT VENTRICULAR PREMATURE COMPLEXES MODERATE INTRAVENTRICULAR CONDUCTION DELAY [110+ ms QRS DURATION] ST DEVIATION AND MODERATE T-WAVE ABNORMALITY, CONSIDER LATERAL ISCHEMIA [-0.1+ mV T-WAVE IN I/aVL/V5/V6] ST DEVIATION AND MODERATE T-WAVE ABNORMALITY, CONSIDER INFERIOR ISCHEMIA [-0.1+ mV T-WAVE IN II/aVF] Compared to ECG 07/18/2024 14:46:34 Ventricular premature complex(es) now present Intraventricular conduction delay now present T-wave abnormality still present Possible ischemia still present Electronically Signed On 07-18-2024 22:52:24 CDT by RAMONA STEINER [id number]
[2024-07-18 18:27] LABS: Basophils # 0.1 10^3/uL (0.0-0.1); Basophils % 0.8 %; Eosinophils # 0.2 10^3/uL (0.0-0.8); Eosinophils % 2.2 %; Hematocrit 47.4 % (37-53); Lymphocytes # 4.6 10^3/uL (0.8-4.8); Lymphocytes % 47.1 %; Mean Corpuscular HGB Conc 33.1 g/dL (30-55); Mean Corpuscular Volume 90.5 fl (82-101); Mean Platelet Volume 9.9 fL (7.4-10.4); Monocytes # 0.6 10^3/uL (0.2-0.9); Monocytes % 5.7 %; Neutrophils # 4.28 10^3/uL (1.8-7.7); Neutrophils % 43.9 %; Nucleated Red Blood Cells % 0 %; Platelet Count 231 10^3/cmm (157-399); Red Blood Count 5.24 10^6/uL (3.85-5.65); Red Cell Distribution Width 13.5 % (12.1-15.1); White Blood Count 9.76 10^3/uL (3.29-11.43)
[2024-07-18 18:57] LABS: Troponin(5th) Baseline 10 ng/L (0-15)
[2024-07-18 19:07] LABS: Alanine Aminotransferase 16 U/L (0-41); Albumin Level 4.2 g/dL (3.5-5.2); Alkaline Phosphatase 87 U/L (40-130); Anion Gap 17.4 (5-19); Aspartate Amino Transferase 15 U/L (0-40); Blood Urea Nitrogen 5 mg/dL (6-20); Carbon Dioxide 22 mmol/L (22-29); Chloride 105 mmol/L (98-107); Creatinine Clr Calc Pharmacy 111.4814; Globulin 2.5 g/dL (1.3-4.6); Glomerular Filtration Rate 101.1 mL/min (90-130); Glucose 92 mg/dL (65-115); Lipase 39 U/L (13-60); NT Pro B Type Natriuretic Pept 1696 pg/mL (0-125); Osmolality Calculated 287 mOsm/kg (285-295); Potassium 4.4 mmol/L (3.5-5.1); Sodium 140 mmol/L (136-145); Total Bilirubin 0.6 mg/dL (0.15-1.2); Total Protein 6.7 g/dL (6.6-8.7)
--- NOTE | 2024-07-18 19:26 | ECG_ITS ---
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1970 Requested By: Tennille Giraldo Order Number: [id number] Reading MD: RAMONA STEINER Measurements Intervals [place] Rate: 85 P: 54 MT: 165 QRS: 73 QRSD: 135 T: 242 QT: 373 QTc: 444 Interpretive Statements SINUS RHYTHM WITH FREQUENT VENTRICULAR PREMATURE COMPLEXES INTRAVENTRICULAR CONDUCTION DELAY [130+ ms QRS DURATION] POSSIBLE ANTERIOR MYOCARDIAL INFARCTION , OF INDETERMINATE AGE [30 ms Q WAVE IN V3/V4, OR R < 0.2 mV IN V4] Compared to ECG 07/18/2024 17:27:47 Myocardial infarct finding now present T-wave abnormality no longer present Possible ischemia no longer present Electronically Signed On 07-18-2024 23:09:27 CDT by RAMONA STEINER [id number] [id number]
--- NOTE | 2024-07-18 20:18 | W.ED.CHESTPA ---
HPI - Chest Pain General: Chief Complaint: Chest Pain Stated Complaint: ches pain, SOB Time Seen by Provider: 07/18/24 20:12 History of Present Illness: Pt with Hx of multiple prior MIs, coronary stents (2002, 2013, 2018), and pacemaker/defibrillator placement (2013) presents for evaluation of chest pain and lightheadedness. Sx began with low BP and low pulse rate two weeks ago, prompting evaluation by cardiology. Today, after an abnormal EKG in the setting of chest pain at rest, pt was referred to the hospital. Pt describes chest pain as intermittent, sharper than usual, located in the center of the chest, lasting a short time, recurring every few hours, and worsened by walking, which also causes SOB and dizziness. Denies significant swelling, but notes occasional mild ankle/foot swelling. Reports ringing in ears. No mention of acute worsening, but Sx have not improved. No aspirin taken today; last medications taken last night. Related Data Home Medications ?Medication ?Instructions ?Recorded ?Confirmed aspirin 81 mg tablet,delayed 81 mg PO DAILY 02/16/19 07/18/24 release (Adult Low Dose Aspirin) Previous Rx's ?Medication ?Instructions ?Recorded nitroglycerin 0.4 mg sublingual 0.4 mg sublingual Q5M PRN chest 05/24/22 tablet (Nitrostat) pain #25 tabs clotrimazole-betamethasone 1 1 applic topical BID athelete's 06/02/23 %-0.05 % topical cream foot 2 weeks #45 grams clopidogrel 75 mg tablet See Rx Instructions .Route 01/18/24 .COMPLEX #90 tabs albuterol sulfate 90 mcg/actuation 2 puff inhalation Q6H PRN 02/13/24 aerosol inhaler shortness of breath or wheezing #8.5 grams losartan 25 mg tablet 25 mg PO DAILY #90 tabs 03/07/24 bupropion HCl 200 mg tablet,12 hr 200 mg PO [facility] mental health #90 03/21/24 sustained-release tabs metoprolol succinate 25 mg 25 mg PO DAILY #90 tabs 03/21/24 tablet,extended release 24 hr Held on 07/04/24. Instructions: Home Medication placed on hold at Doctor's office citalopram 20 mg tablet 20 mg PO DAILY #30 tabs 06/12/24 ezetimibe 10 mg tablet 10 mg PO DAILY #30 tabs 06/12/24 sildenafil (pulm.hypertension) 20 See Rx Instructions .Route 07/02/24 mg tablet .COMPLEX #20 tabs Allergies Allergy/AdvReac Type Severity Reaction Status Date / Time simvastatin AdvReac ADR-Cramping Verified 07/18/24 14:33 of the Muscles [facility] ED PFSH: Medical History Hyperkalemia Anxiety Hypertension Tinea pedis of left foot Dyslipidemia ICD (implantable cardioverter-defibrillator) in place CAD (coronary atherosclerotic disease) anterior [place] 2019 Tobacco use KEENA on CPAP CHF (congestive heart failure) COPD (chronic obstructive pulmonary disease) Depression GERD (gastroesophageal reflux disease) 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 male Surgical History S/P angioplasty with stent Family History Mother Cancer Father CAD (coronary artery disease) Social History Smoking and tobacco/nicotine status: current every day tobacco/nicotine user cigars Alcohol intake: never Substance/Drug Use: never Household members: spouse Marital status: service: No Current gender identity: Male Physical Exam Const: COMMON NORMALS: no acute distress, patient oriented x3 and alert HENMT: COMMON NORMALS: normocephalic and atraumatic HEAD & SCALP: normocephalic and atraumatic Eye: COMMON NORMALS: Equal, round and reactive pupils present, EOMs intact bilaterally and no scleral icterus PUPIL: Yes Equal, round and reactive pupils present Chest: OTHER: Chest pain is not reproducible with palpation or deep inspiration. Resp: COMMON NORMALS: normal respiratory effort and No retractions OTHER: Mild wheezes in all lung nails. Mildly prolonged expiratory phase Cardio: COMMON NORMALS: regular rate, regular rhythm and No murmurs present (Cardio) RATE: regular rate RHYTHM: regular rhythm GI: COMMON NORMALS: Normal to inspection, nondistended, normoactive bowel sounds present, Soft to palpation and non-tender PALPATION: Yes Soft to palpation Neuro: COMMON NORMALS: patient oriented x3 SENSORIUM/ORIENTATION: Yes alert Skin: COMMON NORMALS: no rashes or lesions noted GENERAL SKIN EXAM: no rashes or lesions noted Course Vital Signs: Vital signs: Vital Signs Temperature 97.5 F L 07/18/24 23:19 Pulse Rate 57 L 07/18/24 23:19 Respiratory Rate 17 07/18/24 23:19 Blood Pressure 126/69 07/18/24 23:19 Pulse Oximetry 96 07/18/24 23:19 Oxygen Delivery Me thod Room Air 07/18/24 23:19 MDM - Chest Pain Medical Decision Making In summary, patient is a generally well-appearing 53-year-old male seen for mild chest pressure which he notices at rest of. This has been ongoing for several weeks. Chest pressure and shortness of breath gets worse with exertion. He may be suffering from unstable angina and will be given Lovenox, aspirin, and Nitropaste and admitted to the hospitalist service. I spoke with on-call cardiology who agrees with the plan and will proceed either with stress or catheterization tomorrow not emergently. Patient is agreeable to the plan. Lab Data 07/18/24 18:20 07/18/24 18:20 Radiology Impressions Chest X-Ray 07/18/24 17:26 IMPRESSION: No acute findings. Laboratory Results WBC 9.76 10^3/uL (3.29-11.43) 07/18/24 18:20 RBC 5.24 10^6/uL (3.85-5.65) 07/18/24 18:20 Hgb 15.70 g/dL (11.27-16.99) 07/18/24 18:20 Hct 47.4 % (37-53) 07/18/24 18:20 MCV 90.5 fl (82-101) 07/18/24 18:20 MCH 30.0 pg (27-33) 07/18/24 18:20 MCHC 33.1 g/dL (30-55) 07/18/24 18:20 RDW 13.5 % (12.1-15.1) 07/18/24 18:20 Plt Count 231 10^3/cmm (157-399) 07/18/24 18:20 MPV 9.9 fL (7.4-10.4) 07/18/24 18:20 Neut % (Auto) 43.9 % 07/18/24 18:20 Lymph % (Auto) 47.1 % 07/18/24 18:20 Canadian % (Auto) 5.7 % 07/18/24 18:20 Eos % (Auto) 2.2 % 07/18/24 18:20 Baso % (Auto) 0.8 % 07/18/24 18:20 Neut # (Auto) 4.28 10^3/uL (1.8-7.7) 07/18/24 18:20 Lymph # (Auto) 4.6 10^3/uL (0.8-4.8) 07/18/24 18:20 Canadian # (Auto) 0.6 10^3/uL (0.2-0.9) 07/18/24 18:20 Eos # (Auto) 0.2 10^3/uL (0.0-0.8) 07/18/24 18:20 Baso # (Auto) 0.1 10^3/uL (0.0-0.1) 07/18/24 18:20 Nucleated RBC % (auto) 0 % 07/18/24 18:20 Nucleated RBCs # 0.0 /100WBC 07/18/24 18:20 Sodium 140 mmol/L (136-145) 07/18/24 18:20 Potassium 4.4 mmol/L (3.5-5.1) 07/18/24 18:20 Chloride 105 mmol/L (98-107) 07/18/24 18:20 Carbon Dioxide 22 mmol/L (22-29) 07/18/24 18:20 Anion Gap 17.4 (5-19) 07/18/24 18:20 BUN 5 mg/dL (6-20) L 07/18/24 18:20 Creatinine 0.8 mg/dL (0.7-1.2) 07/18/24 18:20 GFR Calculation 101.1 mL/min (90-130) 07/18/24 18:20 Glucose 92 mg/dL (65-115) 07/18/24 18:20 Calculated Osmolality 287 mOsm/kg (285-295) 07/18/24 18:20 Calcium 9.0 mg/dL (8.5-10.5) 07/18/24 18:20 Total Bilirubin 0.6 mg/dL (0.15-1.2) 07/18/24 18:20 AST 15 U/L (0-40) 07/18/24 18:20 ALT 16 U/L (0-41) 07/18/24 18:20 Alkaline Phosphatase 87 U/L (40-130) 07/18/24 18:20 Troponin T Baseline 10 ng/L (0-15) 07/18/24 18:20 Troponin T 120 Minute 10.87 ng/L (0-15) 07/18/24 19:55 Delta Troponin T 0.87 ABS# (0-10) 07/18/24 19:55 NT-Pro-B Natriuret Pep 1696 pg/mL (0-125) H 07/18/24 18:20 Total Protein 6.7 g/dL (6.6-8.7) 07/18/24 18:20 Albumin 4.2 g/dL (3.5-5.2) 07/18/24 18:20 Globulin 2.5 g/dL (1.3-4.6) 07/18/24 18:20 Lipase 39 U/L (13-60) 07/18/24 18:20 All radiology interpretation(s) finalized by discharge EKG Data EKG 1: Interpretation: Time?2007?sinus, intermittently ventricularly paced rhythm with frequent PVCs, rate of 85, negative Sgarbossa criteria, QTc = 415. Discharge Plan Discharge Patient Disposition: Placed in Observation Admit Provider: Olivia Ayala Clinical Impression: Unstable angina Coding Level of Care Code ED Java Software Engineer for Ch[employer] Ken
[2024-07-18 20:19] LABS: Troponin 5 2HR 10.87 ng/L (0-15); Troponin 5 2HR Delta 0.87 ABS# (0-10)
[2024-07-18] MEDS: nitroglycerin 1 gm/inch oint Pkt 0.5 INCH TOPICAL (20:49)
[2024-07-18] MEDS: enoxaparin 80 mg/0.8 mL Syringe SUBCUT (20:49)
[2024-07-18] MEDS: aspirin 81 mg Chew Tablet 324 MG PO (20:49)
[2024-07-18] MEDS: sodium chloride 0.9% 1,000 ML 75 ML IV (23:11)
--- NOTE | 2024-07-18 23:26 | ECG_ITS ---
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1970 Requested By: Tennille Giraldo Order Number: [id number] Reading MD: RAMONA STEINER Measurements Intervals [place] Rate: 63 P: 56 [place]: 166 QRS: 74 QRSD: 128 T: 235 QT: 435 QTc: 448 Interpretive Statements SINUS RHYTHM WITH OCCASIONAL SUPRAVENTRICULAR PREMATURE COMPLEXES POSSIBLE ANTERIOR MYOCARDIAL INFARCTION , OF INDETERMINATE AGE [30 ms Q WAVE IN V3/V4, OR R < 0.2 mV IN V4] MODERATE T-WAVE ABNORMALITY, CONSIDER LATERAL ISCHEMIA [-0.1+ mV T-WAVE IN I/aVL/V5/V6] MODERATE T-WAVE ABNORMALITY, CONSIDER INFERIOR ISCHEMIA [-0.1+ mV T-WAVE IN II/aVF] Compared to ECG 07/18/2024 20:08:05 T-wave abnormality now present Possible ischemia now present Electronically Signed On 07-21-2024 23:55:00 CDT by RAMONA STEINER [id number] [id number]
[2024-07-18 23:33] LABS: Chol HDL Ratio 6.04 mg/dL (1.0-5.00); Cholesterol 169 mg/dL (0-200); HDL Cholesterol 28 mg/dL (60-100); LDL Cholesterol Calculated 115 mg/dL (50-129); LDL HDL Ratio 4.11 RATIO (0.00-3.22); Thyroid Stimulating Hormone 2.17 uIU/mL (0.27-4.20); Triglycerides 128 mg/dL (0-150)
[2024-07-18 23:35] LABS: Estmated Average Glucose 120; Hemoglobin A1C 5.8 % (4.0-6.0)
[2024-07-19] VITALS (8 sets, daily range): BP systolic 109–123; BP diastolic 67–79; PULSE 54–81; RESP 17–20; TEMP 36.3–36.7; O2SAT 94–96
[2024-07-19] MEDS: efferdent effervescent 1 EACH DENTAL (00:12)
[2024-07-19 01:28] LABS: Troponin 5 6HR 12.34 ng/L (0-15); Troponin 5 6HR Delta 2.34 ng/L (0-12)
[2024-07-19] MEDS: nitroglycerin 1 gm/inch oint Pkt 1 INCH TOPICAL ×4 (03:45→21:36)
[2024-07-19 05:48] LABS: Basophils # 0.1 10^3/uL (0.0-0.1); Basophils % 0.8 %; Eosinophils # 0.3 10^3/uL (0.0-0.8); Eosinophils % 3.9 %; Lymphocytes # 4.8 10^3/uL (0.8-4.8); Lymphocytes % 61.8 %; Mean Corpuscular HGB Conc 33.5 g/dL (30-55); Mean Corpuscular Hemoglobin 30.8 pg (27-33); Mean Platelet Volume 9.8 fL (7.4-10.4); Monocytes # 0.5 10^3/uL (0.2-0.9); Monocytes % 6.6 %; Neutrophils # 2.09 10^3/uL (1.8-7.7); Neutrophils % 26.8 %; Nucleated Red Blood Cells % 0 %; Platelet Count 215 10^3/cmm (157-399); Red Cell Distribution Width 13.6 % (12.1-15.1); White Blood Count 7.77 10^3/uL (3.29-11.43)
[2024-07-19 06:20] LABS: Alanine Aminotransferase 15 U/L (0-41); Albumin Level 3.7 g/dL (3.5-5.2); Alkaline Phosphatase 84 U/L (40-130); Anion Gap 13.3 (5-19); Aspartate Amino Transferase 13 U/L (0-40); Blood Urea Nitrogen 7 mg/dL (6-20); Calcium 8.7 mg/dL (8.5-10.5); Carbon Dioxide 24 mmol/L (22-29); Chloride 105 mmol/L (98-107); Creatinine Clr Calc Pharmacy 112.8517; Globulin 2.6 g/dL (1.3-4.6); Glomerular Filtration Rate 101.1 mL/min (90-130); Glucose 104 mg/dL (65-115); Magnesium 2.1 mg/dL (1.7-2.3); Osmolality Calculated 284 mOsm/kg (285-295); Potassium 4.3 mmol/L (3.5-5.1); Sodium 138 mmol/L (136-145); Total Bilirubin 0.6 mg/dL (0.15-1.2); Total Protein 6.3 g/dL (6.6-8.7)
[2024-07-19 06:26] LABS: NT Pro B Type Natriuretic Pept 1669 pg/mL (0-125)
--- NOTE | 2024-07-19 06:32 | PM.HP ---
Providers/Chief Complaint Admitting Physician: Olivia Ayala MD-----patient was seen and evaluated before 12 midnight Primary Care Provider: Aixa Valera NP Chief Complaint: ches pain, SOB History of Present Illness Roshan Arelalno Sr is a 53 year old male with medical history significant for heart disease. Patient has been having chest pain off and on that comes and goes. Patient followed up at the cardiology clinic for evaluation. While he was up there he started having chest pains. He was then sent to the emergency room for further evaluation. The cardiology clinic wanted him to come to the emergency room for proper evaluation and most likely get admitted for stress test. Patient has been n.p.o. after midnight and had gotten a full aspirin 325 mg upon getting to the emergency room. Patient also got a half an inch of Nitropaste from the emergency room. EKG was ischemic with T wave inversion on the lateral leads with ST depression as well. Chest x-ray unremarkable. Patient was given therapeutic Lovenox as well. I have seen and evaluated patient before midnight and patient at that time verbalized that he is doing fairly okay. And did not have an active chest pain at the time of my evaluation. Was been noted that patient BNP was elevated at 1696. I continued full aspirin daily along with therapeutic Lovenox 80 mg subcutaneously twice daily I ordered an inch of Nitropaste to the anterior chest wall. Ordered gentle hydration of normal saline at 75 millimeter per hour. I have also ordered Lexiscan stress test per cardiology request Review of Systems Narrative: System review upon 10 organ system review were noted to be unremarkable except for cardiovascular system for an unstable angina. Medications/Allergies Home Medications ?Medication ?Instructions ?Recorded ?Confirmed ?Last Taken ?Type aspirin 81 mg tablet,delayed 81 mg PO DAILY 02/16/19 07/18/24 04/11/22 20:30 History release (Adult Low Dose Aspirin) nitroglycerin 0.4 mg sublingual 0.4 mg sublingual Q5M PRN chest 05/24/22 07/18/24 Unknown Rx tablet (Nitrostat) pain #25 tabs clotrimazole-betamethasone 1 1 applic topical BID athelete's 06/02/23 07/18/24 Unknown Rx %-0.05 % topical cream foot 2 weeks #45 grams clopidogrel 75 mg tablet See Rx Instructions .Route 01/18/24 07/18/24 Unknown Rx .COMPLEX #90 tabs albuterol sulfate 90 mcg/actuation 2 puff inhalation Q6H PRN 02/13/24 07/18/24 Unknown Rx aerosol inhaler shortness of breath or wheezing #8.5 grams losartan 25 mg tablet 25 mg PO DAILY #90 tabs 03/07/24 07/18/24 Unknown Rx bupropion HCl 200 mg tablet,12 hr 200 mg PO [facility] mental health #90 03/21/24 07/18/24 Unknown Rx sustained-release tabs metoprolol succinate 25 mg 25 mg PO DAILY #90 tabs 03/21/24 07/18/24 Unknown Rx tablet,extended release 24 hr Held on 07/04/24. Instructions: Home Medication placed on hold at Doctor's office citalopram 20 mg tablet 20 mg PO DAILY #30 tabs 06/12/24 07/18/24 Unknown Rx ezetimibe 10 mg tablet 10 mg PO DAILY #30 tabs 06/12/24 07/18/24 Unknown Rx sildenafil (pulm.hypertension) 20 See Rx Instructions .Route 07/02/24 07/18/24 Unknown Rx mg tablet .COMPLEX #20 tabs Allergies Allergy/AdvReac Type Severity Reaction Status Date / Time simvastatin AdvReac ADR-Cramping Verified 07/18/24 14:33 of the Muscles PFSH Acute PFSH: Medical History Hyperkalemia Anxiety Hypertension Tinea pedis of left foot Dyslipidemia ICD (implantable cardioverter-defibrillator) in place CAD (coronary atherosclerotic disease) anterior [place] 2020 Tobacco use KEENA on CPAP CHF (congestive heart failure) COPD (chronic obstructive pulmonary disease) Depression GERD (gastroesophageal reflux disease) 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 male Surgical History S/P angioplasty with stent Family History Mother Cancer Father CAD (coronary artery disease) Social History Smoking and tobacco/nicotine status: current every day tobacco/nicotine user cigars Alcohol intake: never Substance/Drug Use: never Household members: spouse Marital status: service: No Current gender identity: Male Vitals/I&O/Wt Last Vital Signs Temp 97.5 F L 07/19/24 04:00 Pulse 54 L 07/19/24 04:00 Resp 17 07/19/24 04:00 BP 116/67 07/19/24 04:00 Pulse Ox 94 07/19/24 04:00 O2 Del Method Room Air 07/19/24 04:00 07/18/24 07/18/24 07/19/24 14:59 22:59 06:59 Intake Total 0 / 0 Balance 0 / 0 Weight last 48 hrs Weight 80.739 kg Weight 78.471 kg Weight 78.471 kg Physical Exam Narrative: Generally patient looks well doing okay alert awake oriented x 3 HEENT normocephalic atraumatic Neck is supple Cardiovascular heart rate is regular no heaves Lungs are clear Abdomen is soft nontender nondistended unremarkable Extremities intact no edema has good pulses Neurology has no focality Data 07/19/24 05:34 07/19/24 05:34 A&P Assessment and plan (1) Unstable angina: Patient has been having intermittent chest pain off and on and then decided to come to the emergency room for further evaluation. Patient went for follow-up at the cardiology clinic and was referred to the emergency room. - Patient received Nitropaste full aspirin and anticoagulant with Lovenox in the ED - Continue full aspirin Nitropaste to the anterior chest wall and anticoagulant with therapeutic Lovenox - N.p.o. after 12 midnight for a Lexiscan today - Cardiology on consult (2) ICD (implantable cardioverter-defibrillator) in place: ICD placement for care (3) Anxiety: = Continue antianxiety medications from home medication Home medication needed to be updated prior to reconciling (4) Depression: Continue antidepressant from home medication (5) COPD (chronic obstructive pulmonary disease): Patient is not in overt COPD exacerbation continue all neb treatment and all steroid inhaler from home medication (6) Tobacco use: Smoking cessation has been emphasized patient is still actively smoking even on this day of presentation before midnight patient smokes last at 2 PM and was so proud that he held on so long without smoking. Plan GI and DVT prophylaxis in place PDMP PDMP Reviewed: Last Reviewed 07/19/24 07:00 by Olivia Ayala MD Attestations Medical Necessity Statement*: I attest that patient meets criteria for observation and could turn into inpatient after cardiology has seen the patient. Patient in with unstable angina and have been having ongoing chest pain off-and-on in the setting of ischemic EKG and also on Plavix Coding Level of Care Code 92514 Diagnoses Unstable angina I20.0 ICD (implantable cardioverter-defibrillator) in place Z95.810 Anxiety F41.9 Moderate episode of recurrent major depressive disorder F33.1 Depression Type: major depressive disorder Major depression recurrence: recurrent Active/Remission status: currently active Major depression episode severity: moderate Panlobular emphysema J43.1 COPD type: emphysema Emphysema type: panlobular Tobacco use Z72.0 Time Spent (min) 60
[2024-07-19] MEDS: enoxaparin 100 mg/mL Syringe 80 MG SUBCUT (07:46)
[2024-07-19] MEDS: docusate sodium 100 mg Capsule PO (07:46)
[2024-07-19] MEDS: aspirin 325 mg EC Tablet PO (07:46)
[2024-07-19] MEDS: pantoprazole DR 40 mg Tablet PO (07:46)
--- NOTE | 2024-07-19 07:55 | USCV_ITS ---
Roshan Arellano Sr Age: 53 Gender: M : 1970 Exam Date: 07/19/2024 14:32 Ordering Phys: Olivia Ayala MD Technologist: FLO [place] [facility] [place]: Unstable Angina BP: 110 / 70 HR: 76 Rhythm: Sinus Technical Quality: Adequate MEASUREMENTS (Male / Female) Normal Values 2D ECHO LV Diastolic Diameter PLAX 8.9 cm 4.2 - 5.9 / 3.9 - 5.3 cm IVS Diastolic Thickness 0.6 cm 0.6 - 1.0 / 0.6 - 0.9 cm IVS Systolic Thickness 0.9 cm LVPW Diastolic Thickness 0.9 cm 0.6 - 1.0 / 0.6 - 0.9 cm LVPW Systolic Thickness 2.4 cm LVOT Diameter 2.0 cm LV Ejection Fraction 2D Teich 33.6 % LV Ejection Fraction MOD 4C 29.8 % LV Ejection Fraction MOD 2C 19.1 % LV Ejection Fraction 2C AL 20.9 % LA Diameter 4.2 cm RA Systolic Volume 4C AL 40.3 ml RA Systolic Volume 4C MOD 38.2 ml LA Sys Volume AL 80.9 cm cubed LA Sys Volume Index AL 40.5 cm cubed/m squared Aorta at Sinotubular Diameter 2.4 cm IVC Diameter 2.1 cm M-MODE LA Ao Ratio MM 1.8 AV Cusp Separation MM 1.6 cm DOPPLER AV Peak Velocity 150.0 cm/s AV Area Cont Eq vti 2.4 cm squared AV Area Cont Eq pk 2.2 cm squared MV Peak Velocity 93.0 cm/s MV Area PHT 5.1 cm squared Mitral E to A Ratio 1.1 TR Peak Velocity 101.0 cm/s TR Peak Gradient 4.1 mmHg TV Peak E Velocity 82.0 cm/s PV Peak Velocity 95.0 cm/s FINDINGS Left Ventricle Moderately increased left ventricular cavity size. Severely decreased left ventricular systolic function. Global left ventricular hypokinesis. Left ventricular ejection fraction is estimated at 20 %. Grade II/IV diastolic dysfunction, moderately elevated filling pressures. Right Ventricle The right ventricle is normal in size and function. Right Atrium The right atrium is normal in size. Left Atrium Moderately increased left atrial size. Mitral Valve Moderately thickened mitral valve. Moderate mitral annular calcification. No mitral valve stenosis. Moderate mitral valve regurgitation. Aortic Valve Structurally normal aortic valve without significant sclerosis or stenosis. There is no aortic regurgitation. Tricuspid Valve Trace tricuspid valve regurgitation. Pulmonic Valve Structurally normal pulmonic valve without significant stenosis. There is no pulmonic regurgitation. Pericardium Normal pericardium without effusion. Aorta Normal ascending aorta dimension. IVC The inferior vena cava appears normal. CONCLUSIONS Moderately increased left ventricular cavity size. Severely decreased left ventricular systolic function. Global left ventricular hypokinesis. Left ventricular ejection fraction is estimated at 20 %. Grade II/IV diastolic dysfunction, moderately elevated filling pressures. Moderately thickened mitral valve. Moderate mitral annular calcification. No mitral valve stenosis. Moderate mitral valve regurgitation. Moderately increased left atrial size. Moderately thickened mitral valve. Moderate mitral annular calcification. No mitral valve stenosis. Moderate mitral valve regurgitation. There is no pericardial effusion. Right atrial pressure is around 5 mm of mercury. Jayden Nogueira MD (Electronically Signed) Final Date: 19 July 2024 20:49 S
[2024-07-19] MEDS: sodium chloride 0.9% 1,000 ML 75 ML IV (11:28)
--- NOTE | 2024-07-19 12:07 | P.PN_ITS ---
Subjective 2 Subjective: reports CP that worsens with exertion that has been going on for 2 weeks at this time sitting up in bed, not having chest pain however it does happen intermittently would like to get up and walk around, i advised him bed rest for now as he exhibits signs of classic angina Vitals/I&O/Wt Last Vital Signs Temp 98.0 F 07/19/24 11:10 Pulse 55 L 07/19/24 11:10 Resp 20 H 07/19/24 11:10 BP 117/79 07/19/24 11:10 Pulse Ox 95 07/19/24 11:10 O2 Del Method Room Air 07/19/24 11:10 07/18/24 07/19/24 07/19/24 22:59 06:59 14:59 Intake Total 0 / 0 921.25 / 921.25 Balance 0 / 0 921.25 / 921.25 Weight last 48 hrs Weight 80.739 kg Weight 78.471 kg Weight 78.471 kg Physical Exam 2 Narrative: Generally patient looks well doing okay alert awake oriented x 3 HEENT normocephalic atraumatic Neck is supple Cardiovascular heart rate is regular no heaves, CP not reproducible to palpation Lungs are clear Abdomen is soft nontender nondistended unremarkable Extremities intact no edema has good pulses Neurology has no focality Data 07/20/24 03:21 07/20/24 03:21 A&P Assessment and plan (1) Unstable angina: Patient has been having intermittent chest pain off and on and then decided to come to the emergency room for further evaluation. Patient went for follow-up at the cardiology clinic and was referred to the emergency room. - Patient received Nitropaste full aspirin and anticoagulant with Lovenox in the ED - Continue full aspirin Nitropaste to the anterior chest wall and anticoagulant with therapeutic Lovenox - N.p.o. after 12 midnight for a Lexiscan today - Cardiology on consult (2) ICD (implantable cardioverter-defibrillator) in place: ICD placement for care (3) Anxiety: = Continue antianxiety medications from home medication Home medication needed to be updated prior to reconciling (4) Depression: Continue antidepressant from home medication (5) COPD (chronic obstructive pulmonary disease): Patient is not in overt COPD exacerbation continue all neb treatment and all steroid inhaler from home medication (6) Tobacco use: Smoking cessation has been emphasized patient is still actively smoking even on this day of presentation before midnight patient smokes last at 2 PM and was so proud that he held on so long without smoking. Plan GI and DVT prophylaxis in place 07/19/2024 will transfer to cSU for closer monitoring cancel stress test will need coronary angiogram pt exhibits signs of angina continue to anticoagulate, aspirin, plavix cardio consulted, await recommendations bedrest advised for now repeat EKG, trop if cp recurs pt is NPO at this time, continue to maintain that status till seen by cardiology PDMP PDMP Reviewed: Not Reviewed Attestations 2 Medical Necessity Statement*: unstable angina, will need cardiac cath Diagnoses Unstable angina I20.0 ICD (implantable cardioverter-defibrillator) in place Z95.810 Anxiety F41.9 Moderate episode of recurrent major depressive disorder F33.1 Depression Type: major depressive disorder Major depression recurrence: recurrent Active/Remission status: currently active Major depression episode severity: moderate Panlobular emphysema J43.1 COPD type: emphysema Emphysema type: panlobular Tobacco use Z72.0
--- NOTE | 2024-07-19 15:00 | P.CONIM_ITS ---
<Statement entered by Jayden Nogueira MD - 07/20/24 22:34> Patient was evaluated and cared for in conjunction with an advanced practice practitioner. I personally examined the patient and reviewed the chart and all pertinent data including imaging, telemetry, and laboratory results. I discussed the patient in detail with the advanced practice practitioner. Please see their note for complete H&P testing result and agreed upon plan of care for the patient. Providers/Reason For Consult 2 Consulting Physician/Specialty*: Jayden Nogueira MD Reason for Consult*: Unstable angina Requesting Physician: Dr. Miller Attending Physician: Agnieszka Miller MD Primary Care Provider: Aixa Valera NP History of Present Illness History of Present Illness Roshan Arellano Sr is a 53 year old male who reports a history of ischemic cardiomyopathy status post ICD placement. Most recent angiogram done in revealed a 40% LAD OM was 90% stenosed and he received a stent to that. Does have a history of a stent in the LAD as well previously. Patient is a current everyday smoker. History of hypertension and hyper lipidemia. Most recent EF was seen at 30%. Patient does not have recent echo. He states that on and off for about 2 weeks he developed chest pressure at the center of his chest with some shortness of breath that was worsened by activity and relieved with rest. He also stated that the pain radiated down his right arm. These episodes occurred nearly daily and occurred over 2 minutes. He was seen in the clinic yesterday and started develop active chest pain and was sent to the emergency room. Troponin was 10?10 0.87?12.34. Blood pressure is 110/70 with heart rate of 55. He states that his pulse and blood pressure have been low the past several days. He states that the chest pressure was improved once they put Nitropaste on him. He denies any chest pressure at this time. Creatinine stable at 0.9. He clinically appears euvolemic at this time. Review of Systems 2 Narrative: Consitutional: denies fever, chills, body aches, or changes in appetite, denies abnormal weight loss Eyes: Denies changes in vision Card: Reports chest pain on exertion relieved with rest, palpitations, irregular heart rhythm, edema, syncope, reports shortness of breath on exertion relieved with rest, denies orthopnea, leg pain with exertion Resp: Reports shortness of breath on exertion relieved with rest, denies hemoptysis, denies cough GI: denies abdominal pain, denies nausea or vomiting, denies blood in stool : denies blood in urine, denies dysuria Musc: Denies extremity pain, denies limited range of motion or recent injury Skin: Denies rash, lesions, or wounds, denies changes to skin color Neuro: Denies nubmness in extremities, h/a, s/s of stroke Corona: Denies easy bruiding/bleeding Medications/Allergies Home Medications ?Medication ?Instructions ?Recorded ?Confirmed ?Last Taken ?Type aspirin 81 mg tablet,delayed 81 mg PO DAILY 02/16/19 0 07/19/24 07/18/24 History release (Adult Low Dose Aspirin) clopidogrel 75 mg tablet See Rx Instructions .Route 1 03/20/23 07/19/24 07/18/24 08:00 Rx .COMPLEX #90 tabs albuterol sulfate 90 mcg/actuation 2 puff inhalation Q 6H PRN 02/13/24 07/19/24 Unknown Rx aerosol inhaler shortness of breath or wheez ing #8.5 grams losartan 25 mg tablet 25 mg PO DAILY #90 tabs /04/1007/19/24 07/18/24 08:00 Rx bupropion HCl 200 mg tablet,12 hr 200 mg PO [facility] #90 03/21/24 07/19/24 07/18/24 08:00 Rx sustained-release tabs metoprolol succinate 25 mg 25 mg PO DAILY #90 tabs 07/0807/19/24 Unknown Rx tablet,extended release 24 hr Held on 07/04/24. Instructions: Home Medication placed on hold at Doctor's office citalopram 20 mg tablet 20 mg PO DAILY #30 tabs 05/1607/19/24 07/18/24 08:00 Rx ezetimibe 10 mg tablet 10 mg PO DAILY #30 tabs 05/1607/19/24 07/18/24 08:00 Rx sildenafil (pulm.hypertension) 20 See Rx Instructions .Route 07/02/24 07/19/24 Unknown Rx mg tablet .COMPLEX #20 tabs Allergies Allergy/AdvReac Type Severity Reaction Status Date / Time simvastatin AdvReac ADR-Cramping Verified 07/18/24 14:33 of the Muscles Current Medications Generic Name Dose Route Start Last Admin Trade Name Niiq PRN Reason Stop Dose Admin Aspirin 325 mg 07/19/24 09:00 07/19/24 07:46 Aspirin 325 Mg Ec Tablet PO 325 mg DAILY LONNY Administration Denture Adhesive 1 each 07/18/24 23:49 07/19/24 00:12 Efferdent Effervescent DENTAL 1 each PRN PRN Administration denture strainer cleaner Docusate Sodium 100 mg 07/19/24 09:00 07/19/24 07:46 Docusate Sodium 100 Mg Capsule PO 100 mg BID LONNY Administration Enoxaparin Sodium 80 mg 07/19/24 09:00 07/19/24 07:46 Enoxaparin 100 Mg/Ml Syringe 1 mg/kg (80 mg) 80 mg SUBCUT Administration Q12H LONNY Sodium Chloride 1,000 mls @ 75 mls/hr 07/18/24 22:15 07/19/24 11:28 Sodium Chloride 0.9% IV 75 mls/hr .[id number] LONNY Administration Nitroglycerin 1 inch 07/18/24 22:30 07/19/24 07:45 Nitroglycerin 1 Gm/Inch Oint Pkt TOPICAL 1 inch Q6H LONNY Administration Pantoprazole Sodium 40 mg 07/19/24 09:00 07/19/24 07:[address] 40 Mg Tablet PO 40 mg DAILY LONNY Administration PFSH Acute 2 PFSH: Medical History Hyperkalemia Anxiety Hypertension Tinea pedis of left foot Dyslipidemia ICD (implantable cardioverter-defibrillator) in place CAD (coronary atherosclerotic disease) anterior [place] 2020 Tobacco use KEENA on CPAP CHF (congestive heart failure) COPD (chronic obstructive pulmonary disease) Depression GERD (gastroesophageal reflux disease) 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 male Surgical History S/P angioplasty with stent Family History Mother Cancer Father CAD (coronary artery disease) Social History Smoking and tobacco/nicotine status: current every day tobacco/nicotine user cigars Alcohol intake: never Substance/Drug Use: never Household members: spouse Marital status: service: No Current gender identity: Male Vitals/I&O/Wt Last Vital Signs Temp 98.0 F 07/19/24 11:10 Pulse 55 L 07/19/24 11:10 Resp 20 H 07/19/24 11:10 BP 117/79 07/19/24 11:10 Pulse Ox 95 07/19/24 11:10 O2 Del Method Room Air 07/19/24 11:10 07/19/24 07/19/24 07/19/24 06:59 14:59 22:59 Intake Total 0 / 0 921.25 / 921.25 Balance 0 / 0 921.25 / 921.25 Weight last 48 hrs Weight 178 lb Weight 173 lb Weight 173 lb Physical Exam 2 Narrative: General: No apparent distress, healthy appearing, well nourished HENMT: normoceophalic Muskuloskeletal: Full ROM Lymphatic: no lymphedema noted Respiratory: Normal respiratory effort, clear to auscultation bilaterally throughout all lung nails, no use of accessory muscles Cardio: No JVD, regular rate, regular rhythm, S1 S2 normal, no murmurs, peripheral pulses 2+ radial palpated bilaterally Extremities: Full ROM, normal, normal capillary refill, no cyanosis or edema Neuro: Alert and oriented x4, no focal motor deficits Psych: Affect normal, denies suicidal ideation, mental status grossly normal Skin: No rashes or lesions noted, no wounds Data 07/19/24 05:34 07/19/24 05:34 A&P Assessment and plan (1) Unstable angina: (2) CHF (congestive heart failure): (3) Tobacco use: (4) CAD (coronary atherosclerotic disease): (5) ICD (implantable cardioverter-defibrillator) in place: (6) Dyslipidemia: (7) Hypertension: (8) Bradycardia: Plan Patient has classic signs and symptoms of unstable angina that have recently occurred on and off for the last 2 weeks with exertion now occurring at times at rest. Chest pain relieved with nitro. Patient will need left heart cath possible PCI to rule out progressive coronary artery disease. Clinically he looks euvolemic. Will plan on doing this tomorrow morning. The risk and benefits were discussed in detail with the patient by Dr. Nogueira. The risk of bleeding, hematoma, vascular injury, myocardial infarction, myocardial perforation, malignant cardiac arrhythmias ,CVA, renal failure and other concomitant complications were explained in detail. He fully agrees to proceed. Thank you, Dr. Miller, for allowing us to care for this very pleasant 53 year old gentleman PDMP PDMP Reviewed: Not Reviewed Consult Attestations 2 Medical Necessity Statement: deferred to primary Coding Level of Care Code Acute Code for Chg Fwd Diagnoses Unstable angina I20.0 Chronic systolic congestive heart failure I50.22 Heart failure type: systolic Heart failure chronicity: chronic Tobacco use Z72.0 Coronary atherosclerosis due to lipid rich plaque I25.10; I25.83 Coronary Disease-Associated Artery/Lesion type: due to lipid rich plaque ICD (implantable cardioverter-defibrillator) in place Z95.810 Dyslipidemia E78.5 Renovascular hypertension I15.0 Hypertension type: renovascular hypertension Bradycardia R00.1
--- OUTSIDE RECORDS SUMMARY | 2024-07-19 15:57 | XMS_ITS | Clinical Summary ---
Author Organization [email or web address] Address [address] [place]: Epic Prelude ADT [place] [address] Care Team Providers Care Patient Service Associate Name Role Phone Unavailable Primary Care Provider Unavailabl e Social History Tobacco Use Types Packs/Day Years Used Date Smoking Tobacco: Never Assessed Sex and Gender Information Value Date Recorded Sex Assigned at Not on file Legal Sex Male 5:59 AM [place] Gender Identity Not on file Sexual Orientation Not on file Plan of Treatment Health Maintenance Due Date Last Done Comments DTAP/TDAP/TD VACCINES (1 - Tdap) 1989 HEPATITIS B VACCINES (1 of 3 - 19+ 3-dose series) 09/1989 COLORECTAL SCREENING 10/23/2015 Colorectal Cancer Screening 10/23/2015 FIT-DNA Q 3 years 10/23/2015 FIT/FOBT Q 1 year 10/23/2015 Flex Sig/CT Colonography Q 5 years 10/23/2015 ZOSTER VACCINE (1 of 2) 2020 INFLUENZA VACCINE (#1) 2023
--- OUTSIDE RECORDS SUMMARY | 2024-07-19 15:57 | XMS_ITS | Encounter Summary ---
Author Organization [facility] Address [address] [place] [address] Care Team Providers Care Pocket Closer Name Role Phone Unavailable Primary Care Provider Unavailabl e Encounter Details Date Type Department Care Team (Latest Contact Info) Description 05/01/1998 Outpatient Historical [facility] Oral and Maxillo Surgery- [place] [address] [address] [facility] [address] [place] [address] Faheem Stahl, SACHIS NO ADDRESS ON FILE Unspecified disorder of the teeth and supporting structures (Primary Dx); Pulpitis; Dental caries; Exostosis of jaw Social History Tobacco Use Types Packs/Day Years Used Date Smoking Tobacco: Never Assessed Sex and Gender Information Value Date Recorded Sex Assigned at Not on file Legal Sex Male 5:59 AM [employer] Gender Identity Not on file Sexual Orientation Not on file documented as of this encounter Plan of Treatment Not on file documented as of this encounter Visit Diagnoses Diagnosis Unspecified disorder of the teeth and supporting structures- Primary Pulpitis Dental caries Exostosis of jaw documented in this encounter
[2024-07-20] VITALS (20 sets, daily range): BP systolic 93–115; BP diastolic 58–77; PULSE 60–76; RESP 12–27; TEMP 36.4; O2SAT 92–96; BMI 26.2
[2024-07-20] MEDS: sodium chloride 0.9% 1,000 ML 75 ML IV (02:33)
[2024-07-20 04:09] LABS: Basophils # 0.1 10^3/uL (0.0-0.1); Basophils % 0.9 %; Eosinophils # 0.2 10^3/uL (0.0-0.8); Eosinophils % 2.7 %; Hematocrit 42.4 % (37-53); Lymphocytes # 4.3 10^3/uL (0.8-4.8); Lymphocytes % 60.7 %; Mean Corpuscular HGB Conc 32.8 g/dL (30-55); Mean Corpuscular Hemoglobin 30.3 pg (27-33); Mean Corpuscular Volume 92.4 fl (82-101); Mean Platelet Volume 10.1 fL (7.4-10.4); Monocytes # 0.5 10^3/uL (0.2-0.9); Monocytes % 6.7 %; Neutrophils # 2.02 10^3/uL (1.8-7.7); Neutrophils % 28.9 %; Nucleated Red Blood Cells % 0 %; Platelet Count 205 10^3/cmm (157-399); Red Blood Count 4.59 10^6/uL (3.85-5.65); Red Cell Distribution Width 13.4 % (12.1-15.1)
[2024-07-20 04:33] LABS: Anion Gap 11.2 (5-19); Blood Urea Nitrogen 9 mg/dL (6-20); Calcium 8.4 mg/dL (8.5-10.5); Carbon Dioxide 26 mmol/L (22-29); Chloride 104 mmol/L (98-107); Creatinine Clr Calc Pharmacy 100.3126; Glomerular Filtration Rate 88.3 mL/min (90-130); Glucose 107 mg/dL (65-115); Osmolality Calculated 283 mOsm/kg (285-295); Potassium 4.2 mmol/L (3.5-5.1); Sodium 137 mmol/L (136-145)
[2024-07-20] MEDS: diphenhydrAMINE 50 mg Capsule PO (05:29)
[2024-07-20] MEDS: aspirin 325 mg EC Tablet PO (05:29)
--- NOTE | 2024-07-20 06:01 | XACV_ITS ---
Exam Room: [facility] Ht: 175 cm Wt: 81 kg BSA: 2.00 m2 Gender: Male : 1970 Any Known Allergies: Other Exam Priority: Routine Procedure(s): Procedure Description: Diagnostic procedure Procedure Description: Coronary Angiography CHRIS, Jero; Diagnostic Cath Status: Elective Diagnostic Findings * Left Main has no disease. * Left Anterior Descending has no disease. Patent previously placed proximal LAD stent with minimal in-stent restenosis. * Mid Circumflex: minimal 30% stenosis, KELI: 3 flow. Patent previously placed obtuse marginal 2 stent with minimal in-stent restenosis. * Proximal Right Coronary Artery: luminal irregularities 20% stenosis, KELI: 3 flow. * Coronary angiography shows left dominance. Conclusions 1. There is minimal coronary artery disease with two vessel disease. Recommendations * Continue current medical management and risk factor modification. Diagnostic RX Recommendation: medical therapy and/or counseling Pressures Phase:Rest AO : 105 / 75 ( 87 ) @ 7:56:00 AM Clinical Evaluation EBL: 5mL-10mL Procedural Details Procedure Consent Obtained. Admit Source: In Patient. Pre-Procedure Time Out. Identified patient by full name and date of as verbalized by the patient/guarantor. Does the consent match the physician's order: Yes. Accurate & Complete Informed Consent: Yes. Inpatient/Outpatient History & Physical on Chart: Yes. If H&P is completed, is and addenduem needed: No; If yes, is the addendum complete: N/A. Visualize and Verify Site with Patient/Guarantor: N/A. Relevant Radiology Images available: N/A. The risks, benefits, and alternatives of sedation and/or procedure were discussed by physician. The patient agrees to continue. Procedure started. [facility] Clinical Fraility Score: 3: Managing Well. Back Sizer Indications: Worsening Angina. Chest Pain Symptom Assessment: Typical Angina Symptoms. Correct patient, site and procedure confirmed by cath team. Current diagnosis: Unstable angina. PERRLA. Strong, equal hand tetryl dissolver operator bilaterally. Lungs clear x 5 lobes. IV Fluids: 0.9% NaCl at KVO. 100 mL infused prior to labor employment associate. IV Site on Arrival: 20 gauge in the left anticubital. Pre Procedural Pulses: bilateral radial was 3+. Oxygen started at 2liters/min via nasal canula. right radial was prepped with chloroprep then draped in the usual sterile fashion. right groin was prepped with chloroprep then draped in the usual sterile fashion. Physician notified. Baseline sample Acquired. HR: 74 BPM. Physician arrived. Physician scrubbed in. Immediate Pre-Procedure Time Out. Correct Patient: Yes; Correct Procedure: Yes; Correct Site: Yes; Correct Patient Position: Yes; Correct Supplies: Yes; Dried Flammable Prep: Yes; Blood Products Available: No;. Lidocaine 1% infiltrated to the right radial. An attempt to gain access to the right radial artery was unsuccessful. Manual pressure was held as needed to stop the bleeding. Arterial access obtained. A 5 arabic Favio catheter in over wire. Multiple views taken of left coronary artery. Catheter redirected to the RCA. Multiple views taken of right coronary artery. Catheter redirected to the LCA. Angiography performed of LCS. Catheter removed over the exchange wire. A TR Band was successful obtaining hemostatsis at the Right Radial artery insertion site. Post Procedure: Pulses reassessed and unchanged. PERRLA. Strong, equal hand tetryl dissolver operator bilaterally. No VTE prophylaxis required. Medication's Wasted: Lidocaine 1% = 18 mg. Medication's Wasted: Nitro = 49.7 mg. Medication's Wasted: Heparin = 1000 units. Medication's Wasted: Other = Fentanyl 75mcg. Total IV fluids: 40 mL. Post-op diagnosis: Non-obstructive CAD, patent prior stents. Complications: None. Estimated blood loss: 5mL-10mL. Responsiveness - Normal response to verbal stimuli; alert and oriented, PERRLA. Airway - Unaffected, no intervention required; spontaneous ventilation. Circulation: W/N/L, pulses unchanged. Nausea/Vomiting: No. Procedure completed. Patient transferred by bed to 1st floor. Vital chart was stopped. Access Site Site: Right Radial artery Sheath Size: 6 Fr Hemostasis Method: TR Band Hemostasis Success: Successful Procedure Medications Start: 6:38 AM Stop: 6:38 AM Medication: Versed Amount: 1 mg Route: I.V. Start: 6:38 AM Stop: 6:38 AM Medication: Fentanyl Amount: 25 mcg Route: I.V. Start: 6:46 AM Stop: 6:46 AM Medication: Versed Amount: 1 mg Route: I.V. Start: 6:50 AM Stop: 6:50 AM Medication: Nitrogylcerin Amount: 100 mcg Route: S.Q. Start: 6:52 AM Stop: 6:52 AM Medication: Nitrogylcerin Amount: 200 mcg Route: I.A. Start: 6:55 AM Stop: 6:55 AM Medication: Heparin Amount: 5000 units Route: I.V. I, the attending physician, have reviewed and verified all procedure medications. Yes, all medications given per verbal order History/Risk Factors Hypertension: Yes Dyslipidemia: Yes Peripheral Arterial Disease (PAD): No Myocardial Infarction (PA): Yes Obesity: No Renal Disease: No Prior Interventions PCI: Yes CABG: No Valve Surgery: No Date of PCI: 04/12/2022 Report Signatures Finalized by Jayden Nogueira MD on 07/23/2024 11:36 PM
--- NOTE | 2024-07-20 06:11 | P.PN_ITS ---
Subjective 2 Subjective: going for coronary angiogram today denies cp Vitals/I&O/Wt Last Vital Signs Temp 97.6 F 07/20/24 04:58 Pulse 63 07/20/24 04:58 Resp 22 H 07/20/24 04:58 BP 103/58 07/20/24 04:58 Pulse Ox 96 07/20/24 04:58 O2 Del Method Room Air 07/20/24 00:00 07/19/24 07/19/24 07/20/24 14:59 22:59 06:59 Intake Total 921.25 / 921.25 660 / 1581.25 1000 / 2581.25 Balance 921.25 / 921.25 660 / 1581.25 1000 / 2581.25 Weight last 48 hrs Weight 80.739 kg Weight 78.471 kg Weight 78.471 kg Physical Exam 2 Narrative: Generally patient looks well doing okay alert awake oriented x 3 HEENT normocephalic atraumatic Neck is supple Cardiovascular heart rate is regular no heaves, CP not reproducible to palpation Lungs are clear Abdomen is soft nontender nondistended unremarkable Extremities intact no edema has good pulses Neurology has no focality Data 07/20/24 03:21 07/20/24 03:21 A&P Assessment and plan (1) Unstable angina: Patient has been having intermittent chest pain off and on and then decided to come to the emergency room for further evaluation. Patient went for follow-up at the cardiology clinic and was referred to the emergency room. - Patient received Nitropaste full aspirin and anticoagulant with Lovenox in the ED - Continue full aspirin Nitropaste to the anterior chest wall and anticoagulant with therapeutic Lovenox - N.p.o. after 12 midnight for a Lexiscan today - Cardiology on consult (2) ICD (implantable cardioverter-defibrillator) in place: ICD placement for care (3) Anxiety: = Continue antianxiety medications from home medication Home medication needed to be updated prior to reconciling (4) Depression: Continue antidepressant from home medication (5) COPD (chronic obstructive pulmonary disease): Patient is not in overt COPD exacerbation continue all neb treatment and all steroid inhaler from home medication (6) Tobacco use: Smoking cessation has been emphasized patient is still actively smoking even on this day of presentation before midnight patient smokes last at 2 PM and was so proud that he held on so long without smoking. Plan GI and DVT prophylaxis in place 07/19/2024 will transfer to cSU for closer monitoring cancel stress test will need coronary angiogram pt exhibits signs of angina continue to anticoagulate, aspirin, plavix cardio consulted, await recommendations bedrest advised for now repeat EKG, trop if cp recurs pt is NPO at this time, continue to maintain that status till seen by cardiology 07/20/2024 coronary angiogram today further mgmt decision after results of cath continue ac, asp, plavix - cardio consulted PDMP PDMP Reviewed: Not Reviewed Attestations 2 Medical Necessity Statement*: unstable angina, will need cardiac cath Diagnoses Unstable angina I20.0 ICD (implantable cardioverter-defibrillator) in place Z95.810 Anxiety F41.9 Moderate episode of recurrent major depressive disorder F33.1 Depression Type: major depressive disorder Major depression recurrence: recurrent Active/Remission status: currently active Major depression episode severity: moderate Panlobular emphysema J43.1 COPD type: emphysema Emphysema type: panlobular Tobacco use Z72.0
--- NOTE | 2024-07-20 06:38 | W.PM.OPSUD ---
Surgery/Procedure H&P Update DATE OF PROCEDURE: July 20, 2024 DATE H&P PERFORMED: 07/19/24 H&P UPDATE INFORMATION: I have reviewed H&P completed within last 30 days, I have examined patient prior to procedure and No changes to prior documentation PREOP DIAGNOSIS: Unstable angina PLANNED PROCEDURE: Operation Date: 07/20/24 06:00 Proposed Procedures p Cardiac Catheterization(Left) - Jayden Nogueira MD PATIENT REASSESSED PRIOR TO SEDATION, WITH NO CHANGE NOTED: Yes PHYSICAL EXAM: alert, oriented x 3, clear to auscultation bilaterally, regular rate & rhythm and operative site marked AIRWAY EVAL/ANESTHESIA PLAN: ASA II, Risks, benefits & alternatives of sedation and/or procedure discussed and Patient agrees to continue as planned ADDITIONAL INFORMATION: All risk-benefit and alternative for the procedure has been explained to the patient. Patient understand 2% risk of stroke major bleed. Patient understands expected risk of minor bleeding oozing infection hematoma urgent emergent vascular bypass surgery. Patient understands risk of contrast-induced nephropathy. Patient agrees and would like to proceed with it.
--- NOTE | 2024-07-20 07:07 | PM.PROC ---
Procedure Note: Date of procedure: 07/20/24 Pre-procedure diagnosis: Chest pain suspicious for unstable angina Post-procedure diagnosis: other Procedure: Coronary angiogram was performed Left main: Normal LAD has luminal irregularity with little sluggish flow patent previously placed proximal LAD stent Left circumflex is large caliber dominant vessel with patent previously placed stent no significant stenosis RCA is nondominant small caliber vessel with no significant stenosis Plan: Extracardiac causes for chest pain may need to be sought out Continue aspirin and Plavix Patient claims allergy to statin Radial band as per protocol Add isosorbide mononitrate 30 mg once a day Continue home medications Possible discharge today Coding Level of Care Code Acute Code for Chg Fwd
[2024-07-20] MEDS: pantoprazole DR 40 mg Tablet PO (08:44)
[2024-07-20] MEDS: aspirin 81 mg EC Tablet PO (08:44)
[2024-07-20] MEDS: clopidogrel 75 mg Tablet PO (08:45)
[2024-07-20] MEDS: sodium chloride 0.9% 1,000 ML 100 ML IV (08:45)
--- NOTE | 2024-07-20 13:00 | P.PN_ITS ---
<Statement entered by Jayden Nogueira MD - 07/20/24 22:25> Patient was evaluated and cared for in conjunction with an advanced practice practitioner. I personally examined the patient and reviewed the chart and all pertinent data including imaging, telemetry, and laboratory results. I discussed the patient in detail with the advanced practice practitioner. Please see their note for complete H&P testing result and agreed upon plan of care for the patient. Subjective 2 Subjective: Patient had left heart cath yesterday that was diagnostic. Creatinine normal at 0.9. Ejection fraction still at 20%. Patent LAD stent was seen. Radial site looks clean dry intact. He does not have any chest pain or shortness of breath today. Cath site looks good. Vitals/I&O/Wt Last Vital Signs Temp 97.6 F 07/20/24 11:39 Pulse 63 07/20/24 11:39 Resp 16 07/20/24 11:39 BP 109/70 07/20/24 11:39 Pulse Ox 95 07/20/24 11:39 O2 Del Method Room Air 07/20/24 11:39 07/19/24 07/20/24 07/20/24 22:59 06:59 14:59 Intake Total 660 / 1581.25 1000 / 2581.25 340 / 340 Balance 660 / 1581.25 1000 / 2581.25 340 / 340 Weight last 48 hrs Weight 178 lb Weight 178 lb Weight 173 lb Weight 173 lb Physical Exam 2 Narrative: General: No apparent distress, healthy appearing, well nourished HENMT: normoceophalic Muskuloskeletal: Full ROM Lymphatic: no lymphedema noted Respiratory: Normal respiratory effort, clear to auscultation bilaterally throughout all lung nails, no use of accessory muscles Cardio: No JVD, regular rate, regular rhythm, S1 S2 normal, no murmurs, peripheral pulses 2+ radial palpated bilaterally Extremities: Full ROM, normal, normal capillary refill, no cyanosis or edema Neuro: Alert and oriented x4, no focal motor deficits Psych: Affect normal, denies suicidal ideation, mental status grossly normal Skin: No rashes or lesions noted, no wounds Data 07/20/24 03:21 07/20/24 03:21 A&P Assessment and plan (1) Unstable angina: (2) CHF (congestive heart failure): (3) Tobacco use: (4) CAD (coronary atherosclerotic disease): (5) ICD (implantable cardioverter-defibrillator) in place: (6) Dyslipidemia: (7) Hypertension: (8) Bradycardia: Plan Patient's left heart cath today was diagnostic with previously placed LAD stent patent. He is doing well without complaints. Once TR band protocol is complete, from our standpoint may go home after a couple of hours and f/u on an outpatient basis. PDMP PDMP Reviewed: Not Reviewed Attestations 2 Medical Necessity Statement*: Deferered to primary. Coding Level of Care Code Acute Code for Chg Fwd Diagnoses Unstable angina I20.0 Chronic systolic congestive heart failure I50.22 Heart failure chronicity: chronic Heart failure type: systolic Tobacco use Z72.0 Coronary atherosclerosis due to lipid rich plaque I25.10; I25.83 Coronary Disease-Associated Artery/Lesion type: due to lipid rich plaque ICD (implantable cardioverter-defibrillator) in place Z95.810 Dyslipidemia E78.5 Renovascular hypertension I15.0 Hypertension type: renovascular hypertension Bradycardia R00.1
--- NOTE | 2024-07-20 13:10 | P.DS_ITS ---
Discharge Providers Date of Admission: 07/18/24 21:26 Date of Discharge: July 20, 2024 Attending Provider at Admission: Olivia Ayala MD Attending Provider at Discharge: Agnieszka Miller MD Primary Care Provider: Aixa Valera NP Diagnoses at Discharge Discharge Diagnosis (1) Unstable angina: Status: Resolved (2) CHF (congestive heart failure): Status: Acute Qualifiers: Heart failure chronicity: chronic Heart failure type: systolic Qualified Code(s): I50.22 - Chronic systolic (congestive) heart failure (3) Tobacco use: Status: Acute (4) CAD (coronary atherosclerotic disease): Status: Acute Qualifiers: Coronary Disease-Associated Artery/Lesion type: due to lipid rich plaque Qualified Code(s): I25.10 - Atherosclerotic heart disease of [place] coronary artery without angina pectoris; I25.83 - Coronary atherosclerosis due to lipid rich plaque Permanent problem details: anterior GA 2019 (5) ICD (implantable cardioverter-defibrillator) in place: Status: Acute (6) Dyslipidemia: Status: Acute (7) Hypertension: Status: Acute Qualifiers: Hypertension type: renovascular hypertension Qualified Code(s): I15.0 - Renovascular hypertension (8) Bradycardia: Status: Resolved Reason for Visit Reason for Visit: ches pain, SOB Hospital Course Hospital Course Patient mated for unstable angina secondary to chest pain. Underwent coronary angiogram with patent stents and normal left main. Imdur added. Patient felt better and was discharged home in stable condition. Physical Exam Narrative: Generally patient looks well doing okay alert awake oriented x 3 HEENT normocephalic atraumatic Neck is supple Cardiovascular heart rate is regular no heaves, CP not reproducible to palpation Lungs are clear Abdomen is soft nontender nondistended unremarkable Extremities intact no edema has good pulses Neurology has no focality Discharge Data Studies Completed and Pending Completed Studies During Hospitalization Category Date Time Status XR chest 1V portable [id number] Stat Exams 07/18/24 17:26 Completed CV. echo complete* [id number] Routine Ultrasound 07/19/24 07:55 Completed Pending at discharge Category Date Time Status LICENSED DISPENSING OPTICIAN request for service Routine Exams 07/20/24 06:01 Taken Basic Metabolic Panel AM LABS Lab 07/21/24 04:00 Ordered Complete Blood Count w/Auto AM LABS Lab 07/21/24 04:00 Ordered Radiology Impressions Chest X-Ray 07/18/24 17:26 IMPRESSION: No acute findings. Laboratory Results WBC 7.00 10^3/uL (3.29-11.43) 07/20/24 03:21 RBC 4.59 10^6/uL (3.85-5.65) 07/20/24 03:21 Hgb 13.90 g/dL (11.27-16.99) 07/20/24 03:21 Hct 42.4 % (37-53) 07/20/24 03:21 MCV 92.4 fl (82-101) 07/20/24 03:21 MCH 30.3 pg (27-33) 07/20/24 03:21 MCHC 32.8 g/dL (30-55) 07/20/24 03:21 RDW 13.4 % (12.1-15.1) 07/20/24 03:21 Plt Count 205 10^3/cmm (157-399) 07/20/24 03:21 MPV 10.1 fL (7.4-10.4) 07/20/24 03:21 Neut % (Auto) 28.9 % 07/20/24 03:21 Lymph % (Auto) 60.7 % 07/20/24 03:21 Hughes % (Auto) 6.7 % 07/20/24 03:21 Eos % (Auto) 2.7 % 07/20/24 03:21 Baso % (Auto) 0.9 % 07/20/24 03:21 Neut # (Auto) 2.02 10^3/uL (1.8-7.7) 07/20/24 03:21 Lymph # (Auto) 4.3 10^3/uL (0.8-4.8) 07/20/24 03:21 Hughes # (Auto) 0.5 10^3/uL (0.2-0.9) 07/20/24 03:21 Eos # (Auto) 0.2 10^3/uL (0.0-0.8) 07/20/24 03:21 Baso # (Auto) 0.1 10^3/uL (0.0-0.1) 07/20/24 03:21 Nucleated RBC % (auto) 0 % 07/20/24 03:21 Nucleated RBCs # 0.0 /100WBC 07/20/24 03:21 Sodium 137 mmol/L (136-145) 07/20/24 03:21 Potassium 4.2 mmol/L (3.5-5.1) 07/20/24 03:21 Chloride 104 mmol/L (98-107) 07/20/24 03:21 Carbon Dioxide 26 mmol/L (22-29) 07/20/24 03:21 Anion Gap 11.2 (5-19) 07/20/24 03:21 BUN 9 mg/dL (6-20) 07/20/24 03:21 Creatinine 0.9 mg/dL (0.7-1.2) 07/20/24 03:21 GFR Calculation 88.3 mL/min (90-130) L 07/20/24 03:21 Glucose 107 mg/dL (65-115) 07/20/24 03:21 Estimat Average Glucose 120 07/18/24 18:20 Hemoglobin A1c 5.8 % (4.0-6.0) 07/18/24 18:20 Calculated Osmolality 283 mOsm/kg (285-295) L 07/20/24 03:21 Calcium 8.4 mg/dL (8.5-10.5) L 07/20/24 03:21 Phosphorus 4.0 mg/dL (2.5-4.5) 07/19/24 05:34 Magnesium 2.1 mg/dL (1.7-2.3) 07/19/24 05:34 Total Bilirubin 0.6 mg/dL (0.15-1.2) 07/19/24 05:34 AST 13 U/L (0-40) 07/19/24 05:34 ALT 15 U/L (0-41) 07/19/24 05:34 Alkaline Phosphatase 84 U/L (40-130) 07/19/24 05:34 Troponin T Baseline 10 ng/L (0-15) 07/18/24 18:20 Troponin T 120 Minute 10.87 ng/L (0-15) 07/18/24 19:55 Delta Troponin T 0.87 ABS# (0-10) 07/18/24 19:55 Troponin T Hi Sens 6Hr 12.34 ng/L (0-15) 07/19/24 00:58 Troponin T Hi Sens 6Hr Delta 2.34 ng/L (0-12) 07/19/24 00:58 NT-Pro-B Natriuret Pep 1669 pg/mL (0-125) H 07/19/24 05:34 Total Protein 6.3 g/dL (6.6-8.7) L 07/19/24 05:34 Albumin 3.7 g/dL (3.5-5.2) 07/19/24 05:34 Globulin 2.6 g/dL (1.3-4.6) 07/19/24 05:34 Triglycerides 128 mg/dL (0-150) 07/18/24 18:20 Cholesterol 169 mg/dL (0-200) 07/18/24 18:20 LDL Cholesterol, Calc 115 mg/dL (50-129) 07/18/24 18:20 HDL Cholesterol 28 mg/dL (60-100) L 07/18/24 18:20 LDL/HDL Ratio 4.11 RATIO (0.00-3.22) H 07/18/24 18:20 Cholesterol/HDL Ratio 6.04 mg/dL (1.0-5.00) H 07/18/24 18:20 Lipase 39 U/L (13-60) 07/18/24 18:20 TSH 2.17 uIU/mL (0.27-4.20) 07/18/24 18:20 Vitals Last Vital Signs Temp 97.6 F 07/20/24 11:39 Pulse 63 07/20/24 11:39 Resp 16 07/20/24 11:39 BP 109/70 07/20/24 11:39 Pulse Ox 95 07/20/24 11:39 O2 Del Method Room Air 07/20/24 11:39 Discharge Plan Discharge Patient Disposition: Home Condition: Stable Prescriptions: Continued aspirin [Adult Low Dose Aspirin] 81 mg tablet,delayed release (DR/EC) 81 mg PO DAILY bupropion HCl 200 mg tablet sustained-release 12 hr 200 mg PO QAM Qty: 90 1RF clopidogrel 75 mg tablet See Rx Instructions .ROUTE .COMPLEX Qty: 90 3RF Dose Instruction: TAKE ONE TABLET BY MOUTH DAILY Rx Instructions: TAKE ONE TABLET BY MOUTH DAILY albuterol sulfate 90 mcg/actuation HFA aerosol inhaler 2 puff inhalation Q6H PRN (Reason: shortness of breath or wheezing) Qty: 8.5 3RF losartan 25 mg tablet 25 mg PO DAILY Qty: 90 3RF ezetimibe 10 mg tablet 10 mg PO DAILY Qty: 30 2RF citalopram 20 mg tablet 20 mg PO DAILY Qty: 30 2RF Held sildenafil (pulm.hypertension) 20 mg tablet See Rx Instructions .ROUTE .COMPLEX Qty: 20 1RF Hold Instructions: see pcp Dose Instruction: take 2 tablets BY MOUTH DAILY as needed for sexual activity Rx Instructions: take 2 tablets BY MOUTH DAILY as needed for sexual activity Discharge Orders: Discharge Order (Routine); Ordered 07/20/24 Ordered By: Agnieszka Miller Referrals: Aixa Valera NP [Primary Care Provider, Family Practice] - 07/25/24 10:45 am Jayden Nogueira MD [Physician, Cardiology] - 08/21/24 3:45 pm Montserrat Albrecht FNP [Nurse Practitioner, Cardiology] - 07/31/24 3:30 pm Discharge Diet: Cardiac Discharge Activity: Limit activity as instructed Patient Instructions: Opioid Safety Discharge Attestations Time Spent in Discharge Care*: less than 30 min Quality Metrics Clinical Quality Measures [ No reported AMI, CVA or VTE this stay] Coding Level of Care Code Acute Code for Chg Fwd Diagnoses Unstable angina I20.0 Chronic systolic congestive heart failure I50.22 Heart failure chronicity: chronic Heart failure type: systolic Tobacco use Z72.0 Coronary atherosclerosis due to lipid rich plaque I25.10; I25.83 Coronary Disease-Associated Artery/Lesion type: due to lipid rich plaque ICD (implantable cardioverter-defibrillator) in place Z95.810 Dyslipidemia E78.5 Renovascular hypertension I15.0 Hypertension type: renovascular hypertension Bradycardia R00.1
--- NOTE | 2024-07-20 15:30 | PC.NURSE ---
TR band removed per protocol. Patient education provided. Follow up appointments made. IV removed. Patient understands all discharge instructions.
== END 2024-07-20 15:33 | disposition home or self-care (01) | DRG 287 ==
LOC: ER 22:05 → MEDSURG 23:34 → CSU 07-19 16:11
PROVIDERS: Emergency Medicine; Internal Medicine Cardiovascular Disease; Nurse Practitioner Family; Admitting Provider Internal Medicine; Emergency Provider Student in an Organized Health Care Education/Training Program; Visit Provider Internal Medicine
PROC: 4A023N7 Measurement of Cardiac Sampling and Pressure, Left Heart, Percutaneous Approach (ICD-10-PCS; principal; 2024-07-20 06:00)
DX: I25.110 Atherosclerotic heart disease of native coronary artery with unstable angina pectoris (principal); F33.1 Major depressive disorder, recurrent, moderate; I50.22 Chronic systolic (congestive) heart failure; F41.9 Anxiety disorder, unspecified; E78.5 Hyperlipidemia, unspecified; I25.10 Atherosclerotic heart disease of native coronary artery without angina pectoris; G47.33 Obstructive sleep apnea (adult) (pediatric); J44.9 Chronic obstructive pulmonary disease, unspecified; K21.9 Gastro-esophageal reflux disease without esophagitis; F17.210 Nicotine dependence, cigarettes, uncomplicated; J43.1 Panlobular emphysema; I25.5 Ischemic cardiomyopathy; I11.0 Hypertensive heart disease with heart failure; R00.1 Bradycardia, unspecified; I15.0 Renovascular hypertension; I25.83 Coronary atherosclerosis due to lipid rich plaque; N52.9 Male erectile dysfunction, unspecified; I25.2 Old myocardial infarction; Z95.5 Presence of coronary angioplasty implant and graft; Z95.810 Presence of automatic (implantable) cardiac defibrillator; Z79.82 Long term (current) use of aspirin; Z79.899 Other long term (current) drug therapy; Z79.02 Long term (current) use of antithrombotics/antiplatelets; Z88.8 Allergy status to other drugs, medicaments and biological substances; Z71.6 Tobacco abuse counseling
CPT/HCPCS: 36415; 71045; 80048; 80053; 80061; 83036; 83690; 83735; 83880; 84100; 84443; 84484; 85025; 93005; 93306; 93454; 96372; 99152; 99153; 99285; C1769; C1887; C1894; J1644; J1650; J2250; J3010; J3490; J7030; J9999; Q0163; Q9967

== ENCOUNTER → 2024-07-31 15:11 | Outpatient (BNVA) | payer MEDICAID, SELFPAY | PROVIDERS: Visit Provider Nurse Practitioner Family | DX: I25.110 Atherosclerotic heart disease of native coronary artery with unstable angina pectoris (principal); I10 Essential (primary) hypertension; R00.1 Bradycardia, unspecified; Z72.0 Tobacco use; Z95.810 Presence of automatic (implantable) cardiac defibrillator; Z95.5 Presence of coronary angioplasty implant and graft | CPT/HCPCS: 99214 ==

== ENCOUNTER 2024-10-04 15:09 | Outpatient (CLI) | payer MEDICAID, SELFPAY ==
--- NOTE | 2024-10-04 15:14 | XRR_ITS ---
PROCEDURE INFORMATION: Exam: XR Cervical Spine Exam date and time: 10/04/2024 3:46 PM Age: 53 years old Clinical indication: Neck pain; Additional info: Neck and shoulder pain TECHNIQUE: Imaging protocol: Radiologic exam of the cervical spine. Views: 2 or 3 views. COMPARISON: CR XR chest 1V portable [id number] 07/18/2024 5:47 PM FINDINGS: Bones/joints: Disc space narrowing and spurring C5-C6. Anatomic alignment. No lytic or sclerotic bone lesion. . No acute fracture. Normal alignment. Soft tissues: Unremarkable. XR/XR cervical spine 3V* [id number] IMPRESSION: Degenerative changes.
== END 2024-10-04 15:10 | disposition home or self-care (01) ==
DX: M50.30 Other cervical disc degeneration, unspecified cervical region (principal)
CPT/HCPCS: 72040

== ENCOUNTER → 2024-11-07 12:11 | Outpatient (BNVA) | payer MEDICAID, SELFPAY | PROVIDERS: Visit Provider Internal Medicine | DX: I25.10 Atherosclerotic heart disease of native coronary artery without angina pectoris (principal); I11.0 Hypertensive heart disease with heart failure; I50.22 Chronic systolic (congestive) heart failure; Z95.810 Presence of automatic (implantable) cardiac defibrillator; Z95.5 Presence of coronary angioplasty implant and graft; F17.290 Nicotine dependence, other tobacco product, uncomplicated | CPT/HCPCS: 99214 ==